=== PATIENT | male | born 1930 | race Caucasian/White ===

== ENCOUNTER 2017-03-19 06:30 | Inpatient (IN) | payer MEDICARE, MEDICAID ==
[2017-03-19] VITALS (16 sets, daily range): BP systolic 82–140; BP diastolic 41–75
[~2017-03-19] VITALS: Ht 182.9 cm; Wt 79.4 kg
--- NOTE | 2017-03-19 06:53 | Emergency Room Report ---
History of Present Illness General Chief Complaint: Altered Level of Consciousness Source: Medical Record, EMS Present Illness HPI Patient is an 86-year-old male brought in by EMS after increased altered mental status. Patient was noted to have slightly decreased responsiveness. He was noted to have elevated temperature. Patient had a report productive cough. Patient had the been sent from [facility]. The patient had been reportedly baseline confused. He is Welsh-speaking. Allergies: Coded Allergies: No Known Allergies (Unverified , 03/19/17) Patient History Past Medical History: see triage record, AFib, GI bleed Reviewed Nursing Documentation: PMH: Agreed, PSxH: Agreed Nursing Documentation-PMH Hx Cardiac Problems: Yes - CHRONIC A FIB Hx Hypertension: Yes Hx Gastrointestinal Problems: Yes - DYSPHAGIA,BPH History Of Psychiatric Problem: Yes - ANXIETY,MAJOR DEPRESSIVE DISORDER, DEMENTIA Review of Systems All Other Systems: limited - by mental status Physical Exam Vital Signs Date Time Temp Pulse Resp B/P (MAP) Pulse Ox O2 Delivery O2 Flow Rate FiO2 03/19/17 06:34 100.2 115 18 112/65 95 Room Air Sp02 EP Interpretation: reviewed, normal General Appearance: normal inspection, alert, Chronically Ill Head: atraumatic ENT: normal ENT inspection, hearing grossly normal, normal voice Neck: normal inspection, supple, no bony tend, limited range of motion Respiratory: normal inspection, no respiratory distress, no retraction, rhonchi Cardiovascular #1: regular rate, rhythm, no edema Gastrointestinal: normal inspection, normal bowel sounds, non tender, soft, no guarding, no hernia Genitourinary: no CVA tenderness Musculoskeletal: normal inspection, back normal, normal range of motion Neurologic: normal inspection, alert, responsive, electronic field service engineer III-XII nml as tested, speech normal Psychiatric: normal inspection Skin: normal inspection, normal color, no rash Medical Decision Making Diagnostic Impression: Primary Impression: Altered level of consciousness Additional Impressions: Pneumonia Sepsis Chronic a-fib ER Course The patient presented for altered mental status. Differential diagnosis included but was not limited to ischemic stroke, subarachnoid hemorrhage, hypoglycemia, spinal cord injury, neurodegenerative disorder, urinary tract infection, hypoxemia.Because of complexity of patient's case laboratory testing and imaging studies were ordered. Patient was given IV fluids and patient was given Tylenol. He was noted to have immediate improvement in his mental status after IV hydration. Patient started on IV antibiotics. EKG interpreted by me showed atrial fibrillation with normal heart rate. Rhythm strip showed atrial fibrillation with a rate of 96 without PVCs or ectopy. The patient was noted to have fever and rhonchi consistent with pneumonia. The patient admitted for further IV antibiotics and management of acute febrile illness. A chest x-ray one view interpreted by me showed normal cardiac size with no effusions there is slight right lower lobe infiltrate. Dr. Flores was contacted for inpatient management. Laboratory Tests Test 03/19/17 06:40 03/19/17 07:02 03/19/17 14:05 03/19/17 21:20 White Blood Count 12.1 K/UL (4.8-10.8) H Red Blood Count 4.42 M/UL (4.70-6.10) L Hemoglobin 14.7 G/DL (14.2-18.0) Hematocrit 43.0 % (42.0-52.0) Mean Corpuscular Volume 97 FL (80-99) Mean Corpuscular Hemoglobin 33.3 PG (27.0-31.0) H Mean Corpuscular Hemoglobin Concent 34.2 G/DL (32.0-36.0) Red Cell Distribution Width 12.7 % (11.6-14.8) Platelet Count 251 K/UL (150-450) Mean Platelet Volume 7.8 FL (6.5-10.1) Neutrophils (%) (Auto) % (45.0-75.0) Lymphocytes (%) (Auto) % (20.0-45.0) Monocytes (%) (Auto) % (1.0-10.0) Eosinophils (%) (Auto) % (0.0-3.0) Basophils (%) (Auto) % (0.0-2.0) Differential Total Cells Counted 100 Neutrophils % (Manual) 82 % (45-75) H Lymphocytes % (Manual) 12 % (20-45) L Monocytes % (Manual) 5 % (1-10) Eosinophils % (Manual) 0 % (0-3) Basophils % (Manual) 1 % (0-2) Band Neutrophils 0 % (0-8) Platelet Estimate Adequate Platelet Morphology Normal Urine Color Yellow Urine Appearance Clear Urine pH 6 (4.5-8.0) Urine Specific [place] 1.015 (1.005-1.035) Urine Protein 2+ (NEGATIVE) H Urine Glucose (UA) Negative (NEGATIVE) Urine Ketones Negative (NEGATIVE) Urine Occult Blood Negative (NEGATIVE) Urine Nitrite Negative (NEGATIVE) Urine Bilirubin Negative (NEGATIVE) Urine Urobilinogen 1 MG/DL (0.0-1.0) H Urine Leukocyte Esterase Negative (NEGATIVE) Urine RBC 0-2 /HPF (0 - 0) H Urine WBC 0 /HPF (0 - 0) Urine Squamous Epithelial Cells Occasional /LPF Urine Bacteria None /HPF (NONE) Urine Mucus Few /LPF (NONE/OCC) H Sodium Level 139 MMOL/L (136-145) Potassium Level 4.0 MMOL/L (3.5-5.1) Chloride Level 104 MMOL/L (98-107) Carbon Dioxide Level 26 MMOL/L (21-32) Anion Gap 9 mmol/L (5-15) Blood Urea Nitrogen 26 mg/dL (7-18) H Creatinine 1.4 MG/DL (0.55-1.30) H Estimate Glomerular Filtration Rate mL/min (>60) Glucose Level 131 MG/DL (74-106) H Lactic Acid Level 1.60 mmol/L (0.66-2.22) Calcium Level 9.7 MG/DL (8.5-10.1) Total Bilirubin 0.8 MG/DL (0.2-1.0) Aspartate Amino Transferase (AST) 26 U/L (15-37) Alanine Aminotransferase (ALT) 29 U/L (12-78) Alkaline Phosphatase 87 U/L (46-116) Total Creatine Kinase 43 U/L (26-308) Creatine Kinase MB < 0.5 NG/ML (0.0-3.6) Creatine Kinase MB Relative Index 1.1 Troponin I 0.073 ng/mL (0.000-0.056) 0.049 ng/mL (0.000-0.056) 0.037 ng/mL (0.000-0.056) Pro-B-Type Natriuretic Peptide 4958 pg/mL (0-125) H Total Protein 8.3 G/DL (6.4-8.2) H Albumin 3.2 G/DL (3.4-5.0) L Globulin 5.1 g/dL Albumin/Globulin Ratio 0.6 (1.0-2.7) L Arterial Blood pH 7.446 (7.350-7.450) Arterial Blood Partial Pressure CO2 33.9 mmHg (35.0-45.0) L Arterial Blood Partial Pressure O2 76.7 mmHg (75.0-100.0) Arterial Blood HCO3 22.5 mmol/L (22.0-26.0) Arterial Blood Oxygen Saturation 95.3 % (92.0-98.0) Arterial Blood Base Excess -0.5 Tomy Test Positive Test 03/20/17 03:20 White Blood Count 9.0 K/UL (4.8-10.8) Red Blood Count 3.54 M/UL (4.70-6.10) L Hemoglobin 12.2 G/DL (14.2-18.0) L Hematocrit 35.1 % (42.0-52.0) L Mean Corpuscular Volume 99 FL (80-99) Mean Corpuscular Hemoglobin 34.4 PG (27.0-31.0) H Mean Corpuscular Hemoglobin Concent 34.8 G/DL (32.0-36.0) Red Cell Distribution Width 13.0 % (11.6-14.8) Platelet Count 250 K/UL (150-450) Mean Platelet Volume 8.3 FL (6.5-10.1) Neutrophils (%) (Auto) % (45.0-75.0) Lymphocytes (%) (Auto) % (20.0-45.0) Monocytes (%) (Auto) % (1.0-10.0) Eosinophils (%) (Auto) % (0.0-3.0) Basophils (%) (Auto) % (0.0-2.0) Differential Total Cells Counted 100 Neutrophils % (Manual) 84 % (45-75) H Lymphocytes % (Manual) 10 % (20-45) L Monocytes % (Manual) 6 % (1-10) Eosinophils % (Manual) 0 % (0-3) Basophils % (Manual) 0 % (0-2) Band Neutrophils 0 % (0-8) Platelet Estimate Adequate Platelet Morphology Normal Red Blood Cell Morphology Normal Sodium Level 144 MMOL/L (136-145) Potassium Level 4.6 MMOL/L (3.5-5.1) Chloride Level 109 MMOL/L (98-107) H Carbon Dioxide Level 18 MMOL/L (21-32) L Anion Gap 18 mmol/L (5-15) H Blood Urea Nitrogen 29 mg/dL (7-18) H Creatinine 1.3 MG/DL (0.55-1.30) Estimate Glomerular Filtration Rate mL/min (>60) Glucose Level 106 MG/DL (74-106) Calcium Level 8.8 MG/DL (8.5-10.1) Magnesium Level 1.6 MG/DL (1.8-2.4) L Troponin I 0.034 ng/mL (0.000-0.056) Triglycerides Level 34 MG/DL (30-150) Cholesterol Level 92 MG/DL (< 200) LDL Cholesterol 41 mg/dL (<100) HDL Cholesterol 48 MG/DL (40-60) Cholesterol/HDL Ratio 1.9 (3.3-4.4) L Microbiology Date/Time Source Procedure Growth Status 03/19/17 06:55 Nasal Nares Influenza Types A,B Antigen ([facility]) - Final Complete Labs Test 03/19/17 06:40 03/19/17 07:02 White Blood Count 12.1 K/UL (4.8-10.8) Red Blood Count 4.42 M/UL (4.70-6.10) Hemoglobin 14.7 G/DL (14.2-18.0) Hematocrit 43.0 % (42.0-52.0) Mean Corpuscular Volume 97 FL (80-99) Mean Corpuscular Hemoglobin 33.3 PG (27.0-31.0) Mean Corpuscular Hemoglobin Concent 34.2 G/DL (32.0-36.0) Red Cell Distribution Width 12.7 % (11.6-14.8) Platelet Count 251 K/UL (150-450) Mean Platelet Volume 7.8 FL (6.5-10.1) Neutrophils (%) (Auto) % (45.0-75.0) Lymphocytes (%) (Auto) % (20.0-45.0) Monocytes (%) (Auto) % (1.0-10.0) Eosinophils (%) (Auto) % (0.0-3.0) Basophils (%) (Auto) % (0.0-2.0) Urine Color Yellow Urine Appearance Clear Urine pH 6 (4.5-8.0) Urine Specific [place] 1.015 (1.005-1.035) Urine Protein 2+ (NEGATIVE) Urine Glucose (UA) Negative (NEGATIVE) Urine Ketones Negative (NEGATIVE) Urine Occult Blood Negative (NEGATIVE) Urine Nitrite Negative (NEGATIVE) Urine Bilirubin Negative (NEGATIVE) Urine Urobilinogen 1 MG/DL (0.0-1.0) Urine Leukocyte Esterase Negative (NEGATIVE) Urine RBC 0-2 /HPF (0 - 0) Urine WBC 0 /HPF (0 - 0) Urine Squamous Epithelial Cells Occasional /LPF Urine Bacteria None /HPF (NONE) Urine Mucus Few /LPF (NONE/OCC) Arterial Blood pH 7.446 (7.350-7.450) Arterial Blood Partial Pressure CO2 33.9 mmHg (35.0-45.0) Arterial Blood Partial Pressure O2 76.7 mmHg (75.0-100.0) Arterial Blood HCO3 22.5 mmol/L (22.0-26.0) Arterial Blood Oxygen Saturation 95.3 % (92.0-98.0) Arterial Blood Base Excess -0.5 Tomy Test Positive Last Vital Signs Date Time Temp Pulse Resp B/P (MAP) Pulse Ox O2 Delivery O2 Flow Rate FiO2 03/19/17 06:34 100.2 115 18 112/65 95 Room Air Status: improved Disposition: ADMITTED INPATIENT Condition: Serious Law Carr Mar 19, 2017 06:53
[2017-03-19] MEDS ORDERED: TAMSULOSIN HCL0.4 MG ORAL (06:57)
[2017-03-19] MEDS ORDERED: DOCUSATE SODIU250 MG ORAL (06:57)
[2017-03-19] MEDS ORDERED: PAXIL10 MG ORAL (06:57)
[2017-03-19] MEDS ORDERED: BISACODYL10 M1 RC (06:57)
[2017-03-19] MEDS ORDERED: DEXILANT60 MG ORAL (06:57)
[2017-03-19] MEDS ORDERED: NORVASC5 MG ORAL (06:57)
[2017-03-19] MEDS ORDERED: MULTIVITAMINS1 EAC8 ORAL (06:57)
[2017-03-19] MEDS ORDERED: XARELTO15 MG ORAL (06:57)
[2017-03-19] MEDS ORDERED: CAPTOPRIL50 MG PO (06:57)
[2017-03-19] MEDS ORDERED: VOLTAREN100 G1 TP (06:57)
[2017-03-19] MEDS ORDERED: PATADAY2.5 ML BOTH EYES (06:57)
[2017-03-19] MEDS ORDERED: HPN PO (06:57)
[2017-03-19] MEDS ORDERED: KLONOPIN0.5 MG ORAL (06:57)
[2017-03-19] MEDS ORDERED: DIOVAN160 MG ORAL (06:57)
[2017-03-19] MEDS ORDERED: Acetaminophen 650 MG SUPP RECTAL ONE (07:00)
[2017-03-19] MEDS ORDERED: Vancomycin 1.5gm/D5W 250ml 250 ML IVPB ONE (07:00)
[2017-03-19] MEDS ORDERED: Ampicillin/Sulbactam Sod 3 GM in NS 110 ML IV SCH (07:00)
[2017-03-19] MEDS ORDERED: Unasyn 3gm Inj ONE (07:03)
[2017-03-19 07:15] LABS: APPEARANCE,URINE CLEAR; BILIRUBIN, URINE NEGATIVE (NEGATIVE); GLUCOSE, URINE (UA) NEGATIVE (NEGATIVE); KETONES,URINE NEGATIVE (NEGATIVE); LEUKOCYTE ESTERASE ,URINE NEGATIVE (NEGATIVE); NITRITE,URINE NEGATIVE (NEGATIVE); PH,URINE 6 (4.5-8.0); PROTEIN,URINE 2+ (NEGATIVE); UROBILINOGEN,URINE 1 MG/DL (0.0-1.0)
[2017-03-19 07:19] LABS: ANION GAP 9 mmol/L (5-15); BLOOD UREA NITROGEN 26 mg/dL (7-18); CALCIUM 9.7 MG/DL (8.5-10.1); CARBON DIOXIDE 26 MMOL/L (21-32); CHLORIDE 104 MMOL/L (98-107); CREATININE 1.4 MG/DL (0.55-1.30); SODIUM 139 MMOL/L (136-145)
[2017-03-19 07:22] LABS: HEMOGLOBIN 14.7 G/DL (14.2-18.0); MEAN CORPUSCULAR VOLUME 97 FL (80-99); PLATELET COUNT 251 K/UL (150-450); RED BLOOD COUNT 4.42 M/UL (4.70-6.10); RED CELL DISTRIBUTION WIDTH 12.7 % (11.6-14.8); WHITE BLOOD COUNT 12.1 K/UL (4.8-10.8)
[2017-03-19 07:26] LABS: COLOR,URINE YELLOW
[2017-03-19 07:34] LABS: ALANINE AMINOTRANSFERASE 29 U/L (12-78); ALBUMIN 3.2 G/DL (3.4-5.0); ALBUMIN/GLOBULIN RATIO 0.6 (1.0-2.7); ALKALINE PHOSPHATASE 87 U/L (46-116); ASPARTATE AMINO TRANSFERASE 26 U/L (15-37); BILIRUBIN,TOTAL 0.8 MG/DL (0.2-1.0); CKMB < 0.5 NG/ML (0.0-3.6); CREATINE KINASE 43 U/L (26-308)
--- NOTE | 2017-03-19 08:47 | History and Physical ---
History of Present Illness General Date patient seen: Mar 19, 2017 Time patient seen: 17:15 Reason for Hospitalization: Altered Level of Consciousness Present Illness HPI 86y/o male with pmh of Alzheimer's dementia, Afib (on AC), HTN, GERD, BPH who presents from SNF with cough, SOB, fevers and AMS. Pt noted to have slightly decreased responsiveness than usual per report. He also had fever at SNF. He has been having a productive cough. Also w/ SOB, congestion. Per daughter, pt w / Alzheimer's dementia and is only usually A&Ox1. No reports of chest pain, n/v/ d, abd pain. In ED, pt w/ low-grade fever, leukocytosis and CXR w/ concern for RLL infiltrate. Pt was given vanco and zosyn. Allergies: Coded Allergies: No Known Allergies (Unverified , 03/19/17) Medication History Scheduled Amlodipine Besylate (Norvasc), 5 MG ORAL DAILY, (Reported) Bisacodyl (Bisacodyl), 5 MG RC DAILY, (Reported) Captopril (Captopril), 50 MG PO DAILY, (Reported) Clonazepam* (Klonopin*), 0.5 MG ORAL BID, (Reported) Dexlansoprazole (Dexilant), 60 MG ORAL DAILY, (Reported) Diclofenac Sodium (Voltaren), 100 GM TP QID, (Reported) Docusate Sodium* (Docusate Sodium*), 250 MG ORAL TWICE A DAY, (Reported) Multivitamin With Minerals (Multivitamins With Minerals*), 1 TAB ORAL DAILY, ( Reported) Olopatadine Hcl (Pataday), 1 DROP BOTH EYES BID, (Reported) Paroxetine Hcl* (Paxil*), 5 MG ORAL DAILY, (Reported) Rivaroxaban (Xarelto), 15 MG ORAL DAILY, (Reported) Tamsulosin Hcl (Tamsulosin Hcl*), 0.4 MG ORAL BEDTIME, (Reported) Valsartan (Diovan), 160 MG ORAL DAILY, (Reported) [Hpn], 4 OZ PO THREE TIMES A DAY, (Reported) Patient History History Provided By: Patient, Family Member, Medical Record, EMS Healthcare decision maker Resuscitation status Advanced Directive on File Past Medical/Surgical History Past Medical/Surgical History: (1) HTN (hypertension) (2) Alzheimer's dementia (3) BPH (benign prostatic hyperplasia) (4) GERD (gastroesophageal reflux disease) (5) Chronic a-fib Family History Family History: Patient reports no known family medical history. Social History Social History: (1) lives at [facility] Review of Systems ROS Narrative Unable to obtain as pt w/ dementia Physical Exam Physical Exam Narrative General: alert, cooperative, no distress, appears stated age Head: normocephalic, without obvious abnormality, atraumatic Eyes: conjunctivae/corneas clear. PERRL, EOM's intact Throat: lips, mucosa, and tongue normal. MMM Neck: supple, symmetrical, trachea midline, and no JVD Lungs: +rhonchi b/l Heart: regular rate and rhythm, S1, S2 normal, no murmur, click, rub or gallop Abdomen: soft, non-tender, non-distended, bowel sounds normal Extremities: extremities normal, atraumatic, no cyanosis or edema Pulses: 2+ and symmetric Skin: skin color, texture, turgor normal; no rashes or lesions Neurologic: grossly normal, no focal deficits Last 24 Hour Vital Signs Date Time Temp Pulse Resp B/P (MAP) Pulse Ox O2 Delivery O2 Flow Rate FiO2 03/19/17 08:09 93 21 101/43 98 Nasal Cannula 2.0 03/19/17 08:08 98.8 03/19/17 06:57 100.2 97 25 92/69 98 Nasal Cannula 2.0 03/19/17 06:34 100.2 115 18 112/65 95 Room Air Intake and Output 03/18/17 03/19/17 19:00 07:00 Intake Total 0 ml Balance 0 ml Intake Oral 0 ml Laboratory Tests Test 03/19/17 06:40 03/19/17 07:02 White Blood Count 12.1 K/UL (4.8-10.8) H Red Blood Count 4.42 M/UL (4.70-6.10) L Hemoglobin 14.7 G/DL (14.2-18.0) Hematocrit 43.0 % (42.0-52.0) Mean Corpuscular Volume 97 FL (80-99) Mean Corpuscular Hemoglobin 33.3 PG (27.0-31.0) H Mean Corpuscular Hemoglobin Concent 34.2 G/DL (32.0-36.0) Red Cell Distribution Width 12.7 % (11.6-14.8) Platelet Count 251 K/UL (150-450) Mean Platelet Volume 7.8 FL (6.5-10.1) Neutrophils (%) (Auto) % (45.0-75.0) Lymphocytes (%) (Auto) % (20.0-45.0) Monocytes (%) (Auto) % (1.0-10.0) Eosinophils (%) (Auto) % (0.0-3.0) Basophils (%) (Auto) % (0.0-2.0) Neutrophils % (Manual) Pending Lymphocytes % (Manual) Pending Platelet Estimate Pending Platelet Morphology Pending Urine Color Yellow Urine Appearance Clear Urine pH 6 (4.5-8.0) Urine Specific [place] 1.015 (1.005-1.035) Urine Protein 2+ (NEGATIVE) H Urine Glucose (UA) Negative (NEGATIVE) Urine Ketones Negative (NEGATIVE) Urine Occult Blood Negative (NEGATIVE) Urine Nitrite Negative (NEGATIVE) Urine Bilirubin Negative (NEGATIVE) Urine Urobilinogen 1 MG/DL (0.0-1.0) H Urine Leukocyte Esterase Negative (NEGATIVE) Urine RBC 0-2 /HPF (0 - 0) H Urine WBC 0 /HPF (0 - 0) Urine Squamous Epithelial Cells Occasional /LPF Urine Bacteria None /HPF (NONE) Urine Mucus Few /LPF (NONE/OCC) H Sodium Level 139 MMOL/L (136-145) Potassium Level 4.0 MMOL/L (3.5-5.1) Chloride Level 104 MMOL/L (98-107) Carbon Dioxide Level 26 MMOL/L (21-32) Anion Gap 9 mmol/L (5-15) Blood Urea Nitrogen 26 mg/dL (7-18) H Creatinine 1.4 MG/DL (0.55-1.30) H Estimat Glomerular Filtration Rate mL/min (>60) Glucose Level 131 MG/DL (74-106) H Lactic Acid Level 1.60 mmol/L (0.66-2.22) Calcium Level 9.7 MG/DL (8.5-10.1) Total Bilirubin 0.8 MG/DL (0.2-1.0) Aspartate Amino Transf (AST/SGOT) 26 U/L (15-37) Alanine Aminotransferase (ALT/SGPT) 29 U/L (12-78) Alkaline Phosphatase 87 U/L (46-116) Total Creatine Kinase 43 U/L (26-308) Creatine Kinase MB < 0.5 NG/ML (0.0-3.6) Creatine Kinase MB Relative Index 1.1 Troponin I 0.073 ng/mL (0.000-0.056) Pro-B-Type Natriuretic Peptide 4958 pg/mL (0-125) H Total Protein 8.3 G/DL (6.4-8.2) H Albumin 3.2 G/DL (3.4-5.0) L Globulin 5.1 g/dL Albumin/Globulin Ratio 0.6 (1.0-2.7) L Arterial Blood pH 7.446 (7.350-7.450) Arterial Blood Partial Pressure CO2 33.9 mmHg (35.0-45.0) L Arterial Blood Partial Pressure O2 76.7 mmHg (75.0-100.0) Arterial Blood HCO3 22.5 mmol/L (22.0-26.0) Arterial Blood Oxygen Saturation 95.3 % (92.0-98.0) Arterial Blood Base Excess -0.5 Tomy Test Positive Microbiology Date/Time Source Procedure Growth Status 03/19/17 06:55 Nasal Nares Influenza Types A,B Antigen ([facility]) - Final Complete Height (Feet): 6 Weight (Pounds): 175 Medications Current Medications Medications (Trade) Dose Ordered Sig/Jeny Route PRN Reason Start Time Stop Time Status Last Admin Dose Admin Ampicillin Sodium/ Sulbactam Sodium 3 gm/Sodium Chloride 110 ml @ 220 mls/hr Q6H IV 03/19/17 07:00 03/20/17 06:59 03/19/17 07:14 Sodium Chloride 1,000 ml @ 999 mls/hr Q1H1M ONCE IV 03/19/17 08:30 03/19/17 09:30 03/19/17 08:25 Vancomycin HCl/ Dextrose 250 ml @ 125 mls/hr ONCE ONCE IVPB 03/19/17 07:00 03/19/17 08:59 03/19/17 07:54 Assessment/Plan Problem List: (1) Sepsis ICD Codes: A41.9 - Sepsis, unspecified organism SNOMED: 79274815 (2) HCAP (healthcare-associated pneumonia) ICD Codes: J18.9 - Pneumonia, unspecified organism SNOMED: 911504284 (3) RODOLFO (acute kidney injury) ICD Codes: N17.9 - Acute kidney failure, unspecified SNOMED: 55776666 (4) Acute toxic metabolic encephalopathy (5) Elevated troponin Assessment & Plan: likely NSTEMI type 2 in setting of sepsis ICD Codes: R74.8 - Abnormal levels of other serum enzymes SNOMED: 562950768, 178374782, 706868160 (6) Chronic a-fib ICD Codes: I48.2 - Chronic atrial fibrillation SNOMED: 103452470 (7) GERD (gastroesophageal reflux disease) ICD Codes: K21.9 - Gastro-esophageal reflux disease without esophagitis SNOMED: 275510807 (8) HTN (hypertension) ICD Codes: I10 - Essential (primary) hypertension SNOMED: 65835544 (9) BPH (benign prostatic hyperplasia) ICD Codes: N40.0 - Benign prostatic hyperplasia without lower urinary tract symptoms SNOMED: 384012348 (10) Alzheimer's dementia ICD Codes: G30.9 - Alzheimer's disease, unspecified; F02.80 - Dementia in other diseases classified elsewhere without behavioral disturbance SNOMED: 57265341 Status: stable Assessment/Plan Admit tele Pulm consulted ID consulted Empiric vanco and zosyn (03/19-) F/u cultures Duonebs ATC and PRN Guaifenesin NPO pending swallow eval IVFs given RODOLFO Hold ARB given RODOLFO Trend BMP Cardiology consult given elevated trop Trend trop/EKG Check TTE ASA 81mg daily Cont SNF meds Pain control, bowel regimen Supportive care DVT Prophylaxis: SCD, xarelto Code Status: Full Hospital Classification Declaration: Based on this initial evaluation, and depending on the patient's clinical course, I anticipate that this patient will require hospitalization for 2-3 days for sepsis, PNA, and close respiratory/ hemodynamic monitoring. Disposition: Once the patient is stable to leave the hospital, I anticipate the patient will likely be discharged to the following environment: back to SNF I spent 72 minutes on this patient's case, and 40 minutes were dedicated to counseling and/or care coordination. Discussed with patient/family, nursing staff, SW/LILLIE, pulmonology, ID, cardiology regarding clinical status, treatment course, and disposition planning. Time of note may not reflect time of encounter. Gogo Hubbard M.D. Mar 19, 2017 08:47
[2017-03-19] MEDS ORDERED: Acetaminophen 650 MG SUPP RECTAL PRN (09:00)
[2017-03-19] MEDS ORDERED: Albuterol/Ipratropium 3ml neb HHN PRN ×2 (10:00→14:00)
[2017-03-19] MEDS ORDERED: Miralax 17gm pkt ORAL PRN (10:00)
--- NOTE | 2017-03-19 10:27 | Consultation ---
History of Present Illness General Date patient seen: Mar 19, 2017 Chief Complaint: Fever and upper respiratory symptoms Altered mental status Referring physician: Dr. Thompson Reason for Consultation: Dyspnea Present Illness HPI 86y/o male with pmh of Alzheimer's dementia, Afib, HTN, GERD, BPH who presents from SNF with c/o cough and shortness of breath with fevers and AMS. I was asked to consult on the case and evaluate the patients respiratory status. Patient's CXR at this time is remarkable for possibel right lower lobe infiltrates though the patients dehydration may hinder infiltrate formations, therefore a repeat CXR scheduled to evaluate the patients airfields. The patient has been given empiric IV antibiotics for suspected mcfp aquired pnuemonia and supplmental oxygen will be provided to maintain the patients perfusion. Allergies: Coded Allergies: No Known Allergies (Unverified , 03/19/17) Medication History Scheduled Amlodipine Besylate (Norvasc), 5 MG ORAL DAILY, (Reported) Amoxicillin/Potassium Clav 875-125* (Augmentin 875-125 Tablet*), 1 TAB ORAL TWICE A DAY Bisacodyl (Bisacodyl), 5 MG RC DAILY, (Reported) Captopril (Captopril), 50 MG PO DAILY, (Reported) Clonazepam* (Klonopin*), 0.5 MG ORAL BID, (Reported) Dexlansoprazole (Dexilant), 60 MG ORAL DAILY, (Reported) Diclofenac Sodium (Voltaren), 100 GM TP QID, (Reported) Docusate Sodium* (Docusate Sodium*), 250 MG ORAL TWICE A DAY, (Reported) Doxycycline Monohydrate (Doxycycline Monohydrate), 100 MG PO BID Finasteride (Finasteride), 5 MG ORAL DAILY Multivitamin With Minerals (Multivitamins With Minerals*), 1 TAB ORAL DAILY, ( Reported) Olopatadine Hcl (Pataday), 1 DROP BOTH EYES BID, (Reported) Paroxetine Hcl* (Paxil*), 5 MG ORAL DAILY, (Reported) Tamsulosin Hcl (Tamsulosin Hcl*), 0.4 MG ORAL BEDTIME, (Reported) Valsartan (Diovan), 160 MG ORAL DAILY, (Reported) [Hpn], 4 OZ PO THREE TIMES A DAY, (Reported) Patient History Healthcare decision maker Resuscitation status Advanced Directive on File Past Medical/Surgical History Past Medical/Surgical History: (1) lives at snf (2) GERD (gastroesophageal reflux disease) (3) HTN (hypertension) (4) Alzheimer's dementia (5) BPH (benign prostatic hyperplasia) (6) HCAP (healthcare-associated pneumonia) (7) Acute toxic metabolic encephalopathy (8) Elevated troponin (9) Acute blood loss anemia (10) RODOLFO (acute kidney injury) (11) Gross hematuria Review of Systems Constitutional: Reports: fever, malaise, weakness Respiratory: Reports: cough, shortness of breath, wheezing, sputum Physical Exam General Appearance: confused, mild distress Lines, tubes and drains: peripheral HEENT: normocephalic, atraumatic, anicteric, PERRL Neck: non-tender, normal alignment, supple, normal inspection Respiratory/Chest: chest wall non-tender, decreased breath sounds, crackles/ rales Breasts: no masses Cardiovascular/Chest: normal peripheral pulses, normal rate, regular rhythm, no JVD Abdomen: normal bowel sounds, non tender, soft, no organomegaly, no mass Genitourinary/Rectal: normal genital exam, normal rectal exam Extremities: normal range of motion, non-tender, normal inspection, no calf tenderness Skin Exam: normal pigmentation, warm/dry Neurologic: manager engine II-XII grossly normal, responsive, disoriented Musculoskeletal: atrophy Last 24 Hour Vital Signs Date Time Temp Pulse Resp B/P (MAP) Pulse Ox O2 Delivery O2 Flow Rate FiO2 03/19/17 10:05 88 21 93/63 100 Nasal Cannula 4.0 03/19/17 09:40 77 18 111/64 93 Nasal Cannula 2.0 03/19/17 09:30 79 19 85/42 98 Nasal Cannula 2.0 03/19/17 09:15 79 20 88/59 97 Nasal Cannula 2.0 03/19/17 08:45 85 19 104/57 100 Nasal Cannula 2.0 03/19/17 08:30 79 21 92/41 96 Nasal Cannula 2.0 03/19/17 08:15 85 21 82/41 94 Nasal Cannula 2.0 03/19/17 08:09 93 21 101/43 98 Nasal Cannula 2.0 03/19/17 08:08 98.8 03/19/17 08:00 98.8 85 20 90/59 92 Nasal Cannula 2.0 03/19/17 06:57 100.2 97 25 92/69 98 Nasal Cannula 2.0 03/19/17 06:34 100.2 115 18 112/65 95 Room Air Intake and Output 03/18/17 03/19/17 19:00 07:00 Intake Total 0 ml Balance 0 ml Intake Oral 0 ml Laboratory Tests Test 03/19/17 06:40 03/19/17 07:02 White Blood Count 12.1 K/UL (4.8-10.8) H Red Blood Count 4.42 M/UL (4.70-6.10) L Hemoglobin 14.7 G/DL (14.2-18.0) Hematocrit 43.0 % (42.0-52.0) Mean Corpuscular Volume 97 FL (80-99) Mean Corpuscular Hemoglobin 33.3 PG (27.0-31.0) H Mean Corpuscular Hemoglobin Concent 34.2 G/DL (32.0-36.0) Red Cell Distribution Width 12.7 % (11.6-14.8) Platelet Count 251 K/UL (150-450) Mean Platelet Volume 7.8 FL (6.5-10.1) Neutrophils (%) (Auto) % (45.0-75.0) Lymphocytes (%) (Auto) % (20.0-45.0) Monocytes (%) (Auto) % (1.0-10.0) Eosinophils (%) (Auto) % (0.0-3.0) Basophils (%) (Auto) % (0.0-2.0) Differential Total Cells Counted 100 Neutrophils % (Manual) 82 % (45-75) H Lymphocytes % (Manual) 12 % (20-45) L Monocytes % (Manual) 5 % (1-10) Eosinophils % (Manual) 0 % (0-3) Basophils % (Manual) 1 % (0-2) Band Neutrophils 0 % (0-8) Platelet Estimate Adequate Platelet Morphology Normal Urine Color Yellow Urine Appearance Clear Urine pH 6 (4.5-8.0) Urine Specific [place] 1.015 (1.005-1.035) Urine Protein 2+ (NEGATIVE) H Urine Glucose (UA) Negative (NEGATIVE) Urine Ketones Negative (NEGATIVE) Urine Occult Blood Negative (NEGATIVE) Urine Nitrite Negative (NEGATIVE) Urine Bilirubin Negative (NEGATIVE) Urine Urobilinogen 1 MG/DL (0.0-1.0) H Urine Leukocyte Esterase Negative (NEGATIVE) Urine RBC 0-2 /HPF (0 - 0) H Urine WBC 0 /HPF (0 - 0) Urine Squamous Epithelial Cells Occasional /LPF Urine Bacteria None /HPF (NONE) Urine Mucus Few /LPF (NONE/OCC) H Sodium Level 139 MMOL/L (136-145) Potassium Level 4.0 MMOL/L (3.5-5.1) Chloride Level 104 MMOL/L (98-107) Carbon Dioxide Level 26 MMOL/L (21-32) Anion Gap 9 mmol/L (5-15) Blood Urea Nitrogen 26 mg/dL (7-18) H Creatinine 1.4 MG/DL (0.55-1.30) H Estimat Glomerular Filtration Rate mL/min (>60) Glucose Level 131 MG/DL (74-106) H Lactic Acid Level 1.60 mmol/L (0.66-2.22) Calcium Level 9.7 MG/DL (8.5-10.1) Total Bilirubin 0.8 MG/DL (0.2-1.0) Aspartate Amino Transf (AST/SGOT) 26 U/L (15-37) Alanine Aminotransferase (ALT/SGPT) 29 U/L (12-78) Alkaline Phosphatase 87 U/L (46-116) Total Creatine Kinase 43 U/L (26-308) Creatine Kinase MB < 0.5 NG/ML (0.0-3.6) Creatine Kinase MB Relative Index 1.1 Troponin I 0.073 ng/mL (0.000-0.056) Pro-B-Type Natriuretic Peptide 4958 pg/mL (0-125) H Total Protein 8.3 G/DL (6.4-8.2) H Albumin 3.2 G/DL (3.4-5.0) L Globulin 5.1 g/dL Albumin/Globulin Ratio 0.6 (1.0-2.7) L Arterial Blood pH 7.446 (7.350-7.450) Arterial Blood Partial Pressure CO2 33.9 mmHg (35.0-45.0) L Arterial Blood Partial Pressure O2 76.7 mmHg (75.0-100.0) Arterial Blood HCO3 22.5 mmol/L (22.0-26.0) Arterial Blood Oxygen Saturation 95.3 % (92.0-98.0) Arterial Blood Base Excess -0.5 Tomy Test Positive Microbiology Date/Time Source Procedure Growth Status 03/19/17 06:55 Nasal Nares Influenza Types A,B Antigen ([facility]) - Final Complete Height (Feet): 6 Weight (Pounds): 175 Medications Current Medications Medications (Trade) Dose Ordered Sig/Jeny Route PRN Reason Start Time Stop Time Status Last Admin Dose Admin Acetaminophen (Tylenol) 650 mg Q4H PRN ORAL Mild Pain (Pain Scale 1-3) 03/19/17 10:00 04/18/17 09:59 Acetaminophen (Tylenol) 650 mg Q4H PRN ORAL fever 03/19/17 10:00 04/18/17 09:59 Acetaminophen (Tylenol) 650 mg Q4H PRN RECTAL Mild Pain (Pain Scale 1-3) 03/19/17 09:00 04/18/17 08:59 Albuterol/ Ipratropium (Albuterol/ Ipratropium) 3 ml Q4H PRN HHN Shortness of Breath 03/19/17 10:00 03/24/17 09:59 Amlodipine Besylate (Norvasc) 5 mg DAILY ORAL 03/19/17 09:00 04/18/17 08:59 UNV Ampicillin Sodium/ Sulbactam Sodium 3 gm/Sodium Chloride 110 ml @ 220 mls/hr Q6H IV 03/19/17 07:00 03/20/17 06:59 03/19/17 07:14 Bisacodyl (Dulcolax) 10 mg HSPRN PRN RECTAL Constipation 1st Line Agent 03/19/17 09:00 04/18/17 08:59 Dextrose (Dextrose 50%) STAT PRN IV Hypoglycemia 03/19/17 10:00 04/18/17 09:59 Docusate Sodium (Colace) 100 mg EVERY 12 HOURS ORAL 03/19/17 21:00 04/18/17 20:59 Heparin Sodium (Porcine) (Heparin 5000 units/ml) 5,000 units EVERY 12 HOURS SUBQ 03/19/17 21:00 04/18/17 20:59 UNV Multivitamins Therapeutic (Therapeutic Multivitamin) 1 ea DAILY ORAL 03/19/17 09:00 04/18/17 08:59 UNV Ondansetron HCl (Zofran) 4 mg Q6H PRN IVP Nausea & Vomiting 03/19/17 10:00 04/18/17 09:59 Paroxetine HCl (Paxil) 5 mg DAILY ORAL 03/19/17 09:00 04/18/17 08:59 UNV Piperacillin Sod/ Tazobactam Sod 3.375 gm/Sodium Chloride 110 ml @ 220 mls/hr Q8H IVPB 03/19/17 09:00 03/26/17 08:59 UNV Polyethylene Glycol (Miralax) 17 gm HSPRN PRN ORAL Constipation 2nd Line Agent 03/19/17 10:00 04/18/17 09:59 Rivaroxaban (Xarelto) 15 mg DAILY ORAL 03/19/17 09:00 04/18/17 08:59 UNV Tamsulosin HCl (Flomax) 0.4 mg BEDTIME ORAL 03/19/17 21:00 04/18/17 20:59 Vancomycin HCl (Vanco rx to dose) 1 ea DAILY PRN MISC Per rx protocol 03/19/17 09:00 04/18/17 08:59 UNV Assessment/Plan Status: stable, progressing Assessment/Plan (1) Sepsis (2) Nosocomial pnuemonia HCAP (healthcare-associated pneumonia) (3) RODOLFO (acute kidney injury) (4) Acute toxic metabolic encephalopathy (5) Elevated troponin (6) Chronic a-fib (7) GERD (gastroesophageal reflux disease) (8) HTN (hypertension) (9) BPH (benign prostatic hyperplasia) (10) Alzheimer's dementia PLAN Aspiration precautions Titrate FiO2 up maintain O2 saturation above 92 % Breathing Tx as needed for SOB CXR examined RLL infiltrate possible will re-examine Gentle IV fluids Empiric ANTBX for probable nosocomially aquired pneumonia TUAN FARRELL Mar 19, 2017 10:27
--- NOTE | 2017-03-19 11:43 | Diagnostic Imaging Report ---
Indication: Dyspnea Technique: XRAY Chest 1v Comparison: None Findings: Limited exam as the patient's chin obscures portions of the lung apices. Heart is borderline enlarged. Atherosclerotic calcification is noted in the aortic arch. There is no focal airspace consolidation, pleural effusion or pneumothorax. There is apparent biapical scarring. There is a questionable the and 4 mm nodular entities in the right left apex, respectively.. Impression: Limited exam. Borderline cardiomegaly. No radiographic evidence of acute cardiopulmonary disease. Apparent nodular densities in the apices. Pulmonary nodules not excluded. Further evaluation with CT of the chest recommended. This may be obtained on a nonemergent basis.
[2017-03-19] MEDS: PARoxetine 10mg tab ORAL SCH (14:48)
[2017-03-19] MEDS: Multivitamin w/Minerals tab ORAL SCH (14:48)
--- NOTE | 2017-03-19 14:53 | Cardiac Electrophysiology PN ---
Subjective Subjective Cardiology consult dictated [id number] Objective Last 24 Hour Vital Signs Date Time Temp Pulse Resp B/P (MAP) Pulse Ox O2 Delivery O2 Flow Rate FiO2 03/19/17 12:40 98.9 79 18 114/65 100 Nasal Cannula 4.0 03/19/17 12:00 79 18 114/65 100 Nasal Cannula 4.0 03/19/17 11:00 98.9 87 21 128/56 98 Nasal Cannula 4.0 03/19/17 10:30 80 20 139/60 100 Nasal Cannula 4.0 03/19/17 10:15 80 20 106/73 99 Nasal Cannula 4.0 03/19/17 10:05 88 21 93/63 100 Nasal Cannula 4.0 03/19/17 09:40 77 18 111/64 93 Nasal Cannula 2.0 03/19/17 09:30 79 19 85/42 98 Nasal Cannula 2.0 03/19/17 09:15 79 20 88/59 97 Nasal Cannula 2.0 03/19/17 08:45 85 19 104/57 100 Nasal Cannula 2.0 03/19/17 08:30 79 21 92/41 96 Nasal Cannula 2.0 03/19/17 08:15 85 21 82/41 94 Nasal Cannula 2.0 03/19/17 08:09 93 21 101/43 98 Nasal Cannula 2.0 03/19/17 08:08 98.8 03/19/17 08:00 98.8 85 20 90/59 92 Nasal Cannula 2.0 03/19/17 06:57 100.2 97 25 92/69 98 Nasal Cannula 2.0 03/19/17 06:34 100.2 115 18 112/65 95 Room Air Intake and Output 03/18/17 03/19/17 19:00 07:00 Intake Total 0 ml Balance 0 ml Intake Oral 0 ml Laboratory Tests Test 03/19/17 06:40 03/19/17 07:02 03/19/17 14:05 White Blood Count 12.1 K/UL (4.8-10.8) H Red Blood Count 4.42 M/UL (4.70-6.10) L Hemoglobin 14.7 G/DL (14.2-18.0) Hematocrit 43.0 % (42.0-52.0) Mean Corpuscular Volume 97 FL (80-99) Mean Corpuscular Hemoglobin 33.3 PG (27.0-31.0) H Mean Corpuscular Hemoglobin Concent 34.2 G/DL (32.0-36.0) Red Cell Distribution Width 12.7 % (11.6-14.8) Platelet Count 251 K/UL (150-450) Mean Platelet Volume 7.8 FL (6.5-10.1) Neutrophils (%) (Auto) % (45.0-75.0) Lymphocytes (%) (Auto) % (20.0-45.0) Monocytes (%) (Auto) % (1.0-10.0) Eosinophils (%) (Auto) % (0.0-3.0) Basophils (%) (Auto) % (0.0-2.0) Differential Total Cells Counted 100 Neutrophils % (Manual) 82 % (45-75) H Lymphocytes % (Manual) 12 % (20-45) L Monocytes % (Manual) 5 % (1-10) Eosinophils % (Manual) 0 % (0-3) Basophils % (Manual) 1 % (0-2) Band Neutrophils 0 % (0-8) Platelet Estimate Adequate Platelet Morphology Normal Urine Color Yellow Urine Appearance Clear Urine pH 6 (4.5-8.0) Urine Specific [place] 1.015 (1.005-1.035) Urine Protein 2+ (NEGATIVE) H Urine Glucose (UA) Negative (NEGATIVE) Urine Ketones Negative (NEGATIVE) Urine Occult Blood Negative (NEGATIVE) Urine Nitrite Negative (NEGATIVE) Urine Bilirubin Negative (NEGATIVE) Urine Urobilinogen 1 MG/DL (0.0-1.0) H Urine Leukocyte Esterase Negative (NEGATIVE) Urine RBC 0-2 /HPF (0 - 0) H Urine WBC 0 /HPF (0 - 0) Urine Squamous Epithelial Cells Occasional /LPF Urine Bacteria None /HPF (NONE) Urine Mucus Few /LPF (NONE/OCC) H Sodium Level 139 MMOL/L (136-145) Potassium Level 4.0 MMOL/L (3.5-5.1) Chloride Level 104 MMOL/L (98-107) Carbon Dioxide Level 26 MMOL/L (21-32) Anion Gap 9 mmol/L (5-15) Blood Urea Nitrogen 26 mg/dL (7-18) H Creatinine 1.4 MG/DL (0.55-1.30) H Estimat Glomerular Filtration Rate mL/min (>60) Glucose Level 131 MG/DL (74-106) H Lactic Acid Level 1.60 mmol/L (0.66-2.22) Calcium Level 9.7 MG/DL (8.5-10.1) Total Bilirubin 0.8 MG/DL (0.2-1.0) Aspartate Amino Transf (AST/SGOT) 26 U/L (15-37) Alanine Aminotransferase (ALT/SGPT) 29 U/L (12-78) Alkaline Phosphatase 87 U/L (46-116) Total Creatine Kinase 43 U/L (26-308) Creatine Kinase MB < 0.5 NG/ML (0.0-3.6) Creatine Kinase MB Relative Index 1.1 Troponin I 0.073 ng/mL (0.000-0.056) 0.049 ng/mL (0.000-0.056) Pro-B-Type Natriuretic Peptide 4958 pg/mL (0-125) H Total Protein 8.3 G/DL (6.4-8.2) H Albumin 3.2 G/DL (3.4-5.0) L Globulin 5.1 g/dL Albumin/Globulin Ratio 0.6 (1.0-2.7) L Arterial Blood pH 7.446 (7.350-7.450) Arterial Blood Partial Pressure CO2 33.9 mmHg (35.0-45.0) L Arterial Blood Partial Pressure O2 76.7 mmHg (75.0-100.0) Arterial Blood HCO3 22.5 mmol/L (22.0-26.0) Arterial Blood Oxygen Saturation 95.3 % (92.0-98.0) Arterial Blood Base Excess -0.5 Tomy Test Positive Microbiology Date/Time Source Procedure Growth Status 03/19/17 06:55 Nasal Nares Influenza Types A,B Antigen ([facility]) - Final Complete DOROTHY ARMSTRONG Mar 19, 2017 14:53
--- NOTE | 2017-03-19 15:07 | Cardiology Report ---
APPROVED REPORT EXAM: Two-dimensional and M-mode echocardiogram with Doppler and color Doppler. INDICATION SOB M-Mode DIMENSIONS IVSd0.8 (0.7-1.1cm)Left Atrium (MM)4.7 (1.6-4.0cm) LVDd4.6 (3.5-5.6cm)Aortic Root3.2 (2.0-3.7cm) PWd1.0 (0.7-1.1cm)Aortic Cusp Exc.1.8 (1.5-2.0cm) LVDs3.3 (2.5-4.0cm) PWs0.9 cm Technically difficult study due to poor acoustical windows. Patients position. Normal left ventricular chamber size, systolic function and wall motion. Left ventricular ejection fraction estimated to be 55-60%. No evidence of left ventricular hypertrophy. No evidence of pericardial or pleural effusion. Mild bi-atrial and right ventricular enlargements. Focal aortic valve sclerosis with adequate cusp excursion. Thickened mitral valve leaflets with normal excursion. Mild mitral annulus and aortic root calcification. Pulmonic valve not well visualized. Normal tricuspid valve structure. IVC is not obtainable A color flow and spectral Doppler study was performed and revealed: Mild aortic regurgitation. Trace mitral regurgitation. Mitral inflow velocities indicates possible pseudo normalization pattern implying significant left ventricular diastolic dysfunction. Mild tricuspid regurgitation. Tricuspid systolic velocities suggests peak right ventricular systolic pressure of 35mmHg Consistent with mild pulmonary hypertension.
[2017-03-19] MEDS: Piperacillin/Tazobactam 4.5 GM in NS 110 ML IVPB SCH ×2 (16:12→22:08)
[2017-03-19] MEDS: Albuterol/Ipratropium 3ml neb HHN SCH ×2 (16:48→19:14)
[2017-03-19] MEDS: Xarelto 15mg tab ORAL SCH (17:37)
[2017-03-19] MEDS: guaiFENesin ER 600mg tab ORAL SCH (17:38)
[2017-03-19] MEDS: Docusate 100mg cap ORAL SCH (21:00)
[2017-03-19] MEDS ORDERED: Heparin 5000 units/ml inj SUBQ SCH (21:00)
[2017-03-19] MEDS: Tamsulosin 0.4mg cap ORAL SCH (21:02)
[2017-03-19] MEDS: Metoprolol 25mg tab ORAL SCH (21:02)
--- NOTE | 2017-03-19 21:45 | Consultation ---
DATE OF CONSULTATION: 03/19/2017 CARDIOLOGY CONSULTATION CONSULTING PHYSICIAN: Isaac Amezcua M.D. REFERRING PHYSICIAN: Carlos Lu M.D. REASON FOR CONSULTATION: Atrial fibrillation and elevated cardiac enzymes. HISTORY OF PRESENT ILLNESS: The patient is an 86-year-old gentleman with history of hypertension, chronic atrial fibrillation, history of major depressive disorder, and dementia who was brought by paramedics for increased altered mental status. The patient also had fever and productive cough. The patient was sent from [facility]. The patient was admitted. His EKG showed atrial fibrillation with rapid ventricular response, heart rate of 115 beats per minute. Cardiac Electrophysiology consultation was requested for further evaluation and management. REVIEW OF SYSTEM: Limited in view of his mental status. Most of the information was obtained by reviewing the records and discussion with the nurse. PAST MEDICAL HISTORY: 1. Hypertension. 2. Chronic atrial fibrillation. 3. Dementia. 4. History of GI bleed. 5. Major depressive disorder. FAMILY HISTORY: Noncontributory. SOCIAL HISTORY: He lives in a residential. Does not smoke or drink alcohol. PHYSICAL EXAMINATION: VITAL SIGNS: Blood pressure is 114/65, pulse 80, respirations 18, and temperature 98.9. HEAD AND NECK: Showed no JVD. LUNGS: Clear. CARDIOVASCULAR: Shows regular S1 and S2 with no gallop or murmur. ABDOMEN: Soft. EXTREMITIES: No pitting edema. LABORATORY AND DIAGNOSTIC DATA: His EKG showed atrial fibrillation with rapid ventricular response, heart rate 115 beats per minute. Labs show white count 12.1, hemoglobin 14.7, hematocrit 43, and platelet count of 251. Sodium 139, potassium 4.0, BUN 22, creatinine 1.4, and glucose 131. Troponin is 0.073. BNP is . ASSESSMENT AND PLAN: 1. Troponin elevation. The patient does not have any chest pain neither he is demented. We will get the serial cardiac enzymes. We will get an echocardiogram to evaluate for ejection fraction and wall motion abnormality. At this time, we will treat him medically with aspirin, Lopressor, and Lipitor until we get further information. 2. Chronic atrial fibrillation. The patient is on Xarelto 15 mg daily. I will add Lopressor 25 mg twice a day in view of elevated troponin and also for better rate control during atrial fibrillation. 3. Fever and sepsis. The patient was started on vancomycin and Zosyn empirically. 4. Hypertension. I will discontinue Norvasc and continue him on beta-esteban to help with elevated troponin as well as atrial fibrillation with rapid ventricular response. 5. Dementia. 6. Altered mental status likely due to sepsis. Thank you very much, Dr. Lu, for allowing me to participate in the care of this patient. Please do not hesitate to contact me for any questions regarding my evaluation. Isaac Amezcua M.D. DR: NILA JOB#: [id number] CC:
--- NOTE | 2017-03-19 21:45 | Infectious Diseases Prog Note ---
Assessment/Plan Assessment/Plan Full consult to follow: A) 1) sepsis, leukocytosis, fevers, ams 2) congestion, ? pna 3) allergies - negative P) 1) vancomycin and zosyn 2) check cultures, labs and chest x-ray 3) thank you Subjective Allergies: Coded Allergies: No Known Allergies (Unverified , 03/19/17) Objective Vital Signs Last 24 Hour Vital Signs Date Time Temp Pulse Resp B/P (MAP) Pulse Ox O2 Delivery O2 Flow Rate FiO2 03/19/17 21:02 74 143/72 03/19/17 20:00 98.2 72 16 140/70 96 03/19/17 19:29 91 18 95 Room Air 21 03/19/17 19:16 94 18 93 Room Air 03/19/17 16:50 81 17 93 Room Air 03/19/17 16:00 82 20 120/75 99 Nasal Cannula 4.0 03/19/17 16:00 102 03/19/17 14:48 79 114/65 03/19/17 12:40 98.9 79 18 114/65 100 Nasal Cannula 4.0 03/19/17 12:00 79 18 114/65 100 Nasal Cannula 4.0 03/19/17 11:00 98.9 87 21 128/56 98 Nasal Cannula 4.0 03/19/17 10:30 80 20 139/60 100 Nasal Cannula 4.0 03/19/17 10:15 80 20 106/73 99 Nasal Cannula 4.0 03/19/17 10:05 88 21 93/63 100 Nasal Cannula 4.0 03/19/17 09:40 77 18 111/64 93 Nasal Cannula 2.0 03/19/17 09:30 79 19 85/42 98 Nasal Cannula 2.0 03/19/17 09:15 79 20 88/59 97 Nasal Cannula 2.0 03/19/17 08:45 85 19 104/57 100 Nasal Cannula 2.0 03/19/17 08:30 79 21 92/41 96 Nasal Cannula 2.0 03/19/17 08:15 85 21 82/41 94 Nasal Cannula 2.0 03/19/17 08:09 93 21 101/43 98 Nasal Cannula 2.0 03/19/17 08:08 98.8 03/19/17 08:00 98.8 85 20 90/59 92 Nasal Cannula 2.0 03/19/17 06:57 100.2 97 25 92/69 98 Nasal Cannula 2.0 03/19/17 06:34 100.2 115 18 112/65 95 Room Air Height (Feet): 6 Weight (Pounds): 175 Microbiology Date/Time Source Procedure Growth Status 03/19/17 06:55 Nasal Nares Influenza Types A,B Antigen ([facility]) - Final Complete Laboratory Tests Test 03/19/17 06:40 03/19/17 07:02 03/19/17 14:05 03/19/17 21:20 White Blood Count 12.1 K/UL (4.8-10.8) H Red Blood Count 4.42 M/UL (4.70-6.10) L Hemoglobin 14.7 G/DL (14.2-18.0) Hematocrit 43.0 % (42.0-52.0) Mean Corpuscular Volume 97 FL (80-99) Mean Corpuscular Hemoglobin 33.3 PG (27.0-31.0) H Mean Corpuscular Hemoglobin Concent 34.2 G/DL (32.0-36.0) Red Cell Distribution Width 12.7 % (11.6-14.8) Platelet Count 251 K/UL (150-450) Mean Platelet Volume 7.8 FL (6.5-10.1) Neutrophils (%) (Auto) % (45.0-75.0) Lymphocytes (%) (Auto) % (20.0-45.0) Monocytes (%) (Auto) % (1.0-10.0) Eosinophils (%) (Auto) % (0.0-3.0) Basophils (%) (Auto) % (0.0-2.0) Differential Total Cells Counted 100 Neutrophils % (Manual) 82 % (45-75) H Lymphocytes % (Manual) 12 % (20-45) L Monocytes % (Manual) 5 % (1-10) Eosinophils % (Manual) 0 % (0-3) Basophils % (Manual) 1 % (0-2) Band Neutrophils 0 % (0-8) Platelet Estimate Adequate Platelet Morphology Normal Urine Color Yellow Urine Appearance Clear Urine pH 6 (4.5-8.0) Urine Specific Palmer 1.015 (1.005-1.035) Urine Protein 2+ (NEGATIVE) H Urine Glucose (UA) Negative (NEGATIVE) Urine Ketones Negative (NEGATIVE) Urine Occult Blood Negative (NEGATIVE) Urine Nitrite Negative (NEGATIVE) Urine Bilirubin Negative (NEGATIVE) Urine Urobilinogen 1 MG/DL (0.0-1.0) H Urine Leukocyte Esterase Negative (NEGATIVE) Urine RBC 0-2 /HPF (0 - 0) H Urine WBC 0 /HPF (0 - 0) Urine Squamous Epithelial Cells Occasional /LPF Urine Bacteria None /HPF (NONE) Urine Mucus Few /LPF (NONE/OCC) H Sodium Level 139 MMOL/L (136-145) Potassium Level 4.0 MMOL/L (3.5-5.1) Chloride Level 104 MMOL/L (98-107) Carbon Dioxide Level 26 MMOL/L (21-32) Anion Gap 9 mmol/L (5-15) Blood Urea Nitrogen 26 mg/dL (7-18) H Creatinine 1.4 MG/DL (0.55-1.30) H Estimat Glomerular Filtration Rate mL/min (>60) Glucose Level 131 MG/DL (74-106) H Lactic Acid Level 1.60 mmol/L (0.66-2.22) Calcium Level 9.7 MG/DL (8.5-10.1) Total Bilirubin 0.8 MG/DL (0.2-1.0) Aspartate Amino Transf (AST/SGOT) 26 U/L (15-37) Alanine Aminotransferase (ALT/SGPT) 29 U/L (12-78) Alkaline Phosphatase 87 U/L (46-116) Total Creatine Kinase 43 U/L (26-308) Creatine Kinase MB < 0.5 NG/ML (0.0-3.6) Creatine Kinase MB Relative Index 1.1 Troponin I 0.073 ng/mL (0.000-0.056) 0.049 ng/mL (0.000-0.056) Pending Pro-B-Type Natriuretic Peptide 4958 pg/mL (0-125) H Total Protein 8.3 G/DL (6.4-8.2) H Albumin 3.2 G/DL (3.4-5.0) L Globulin 5.1 g/dL Albumin/Globulin Ratio 0.6 (1.0-2.7) L Arterial Blood pH 7.446 (7.350-7.450) Arterial Blood Partial Pressure CO2 33.9 mmHg (35.0-45.0) L Arterial Blood Partial Pressure O2 76.7 mmHg (75.0-100.0) Arterial Blood HCO3 22.5 mmol/L (22.0-26.0) Arterial Blood Oxygen Saturation 95.3 % (92.0-98.0) Arterial Blood Base Excess -0.5 Tomy Test Positive Current Medications Medications (Trade) Dose Ordered Sig/Jeny Route PRN Reason Start Time Stop Time Status Last Admin Dose Admin Acetaminophen (Tylenol) 650 mg Q4H PRN ORAL Mild Pain (Pain Scale 1-3) 03/19/17 10:00 04/18/17 09:59 Acetaminophen (Tylenol) 650 mg Q4H PRN ORAL fever 03/19/17 10:00 04/18/17 09:59 Acetaminophen (Tylenol) 650 mg Q4H PRN RECTAL Mild Pain (Pain Scale 1-3) 03/19/17 09:00 04/18/17 08:59 Albuterol/ Ipratropium (Albuterol/ Ipratropium) 3 ml Q4H PRN HHN Shortness of Breath 03/19/17 14:00 03/24/17 13:59 Albuterol/ Ipratropium (Albuterol/ Ipratropium) 3 ml Q6HRT HHN 03/19/17 14:30 03/24/17 14:29 03/19/17 19:14 Aspirin (Ecotrin) 81 mg DAILY ORAL 03/20/17 09:00 04/19/17 08:59 Bisacodyl (Dulcolax) 10 mg HSPRN PRN RECTAL Constipation 1st Line Agent 03/19/17 09:00 04/18/17 08:59 Dextrose (Dextrose 50%) STAT PRN IV Hypoglycemia 03/19/17 10:00 04/18/17 09:59 Docusate Sodium (Colace) 100 mg EVERY 12 HOURS ORAL 03/19/17 21:00 04/18/17 20:59 Guaifenesin (Mucinex ER) 600 mg TWICE A DAY ORAL 03/19/17 18:00 04/18/17 17:59 03/19/17 17:38 Metoprolol Tartrate (Lopressor) 25 mg Q12HR ORAL 03/19/17 21:00 04/18/17 20:59 03/19/17 21:02 Multivitamins Therapeutic (Therapeutic Multivitamin) 1 ea DAILY ORAL 03/19/17 09:00 04/18/17 08:59 03/19/17 14:48 Ondansetron HCl (Zofran) 4 mg Q6H PRN IVP Nausea & Vomiting 03/19/17 10:00 04/18/17 09:59 Paroxetine HCl (Paxil) 5 mg DAILY ORAL 03/19/17 09:00 04/18/17 08:59 03/19/17 14:48 Piperacillin Sod/ Tazobactam Sod 4.5 gm/Sodium Chloride 110 ml @ 27.5 mls/hr Q8HR IVPB 03/19/17 14:00 03/26/17 13:59 03/19/17 16:12 Polyethylene Glycol (Miralax) 17 gm HSPRN PRN ORAL Constipation 2nd Line Agent 03/19/17 10:00 04/18/17 09:59 Rivaroxaban (Xarelto) 15 mg QPM ORAL 03/19/17 16:30 04/18/17 16:29 03/19/17 17:37 Sodium Chloride 1,000 ml @ 75 mls/hr [id number] IV 03/19/17 15:00 04/18/17 14:59 03/19/17 16:12 Tamsulosin HCl (Flomax) 0.4 mg BEDTIME ORAL 03/19/17 21:00 04/18/17 20:59 03/19/17 21:02 Vancomycin HCl (Vanco rx to dose) 1 ea DAILY PRN MISC Per rx protocol 03/19/17 09:00 04/18/17 08:59 Vancomycin HCl 1 gm/Dextrose 275 ml @ 183.708 mls/hr Q24H IVPB 03/20/17 08:00 03/25/17 07:59 LILLIE LOMELI Mar 19, 2017 21:45
[2017-03-20] VITALS: BP 127/63
[2017-03-20] MEDS: Albuterol/Ipratropium 3ml neb HHN SCH ×4 (01:44→19:51)
[2017-03-20 04:00] VITALS: BP 107/57
[2017-03-20 04:18] LABS: HEMATOCRIT 35.1 % (42.0-52.0); HEMOGLOBIN 12.2 G/DL (14.2-18.0); MEAN CORPUSCULAR VOLUME 99 FL (80-99); RED BLOOD COUNT 3.54 M/UL (4.70-6.10)
[2017-03-20] MEDS: Piperacillin/Tazobactam 4.5 GM in NS 110 ML IVPB SCH ×3 (05:01→21:04)
[2017-03-20 07:06] LABS: ANION GAP 18 mmol/L (5-15); BLOOD UREA NITROGEN 29 mg/dL (7-18); CALCIUM 8.8 MG/DL (8.5-10.1); CARBON DIOXIDE 18 MMOL/L (21-32); CHLORIDE 109 MMOL/L (98-107); CHOLESTEROL 92 MG/DL (< 200); CREATININE 1.3 MG/DL (0.55-1.30); HDL CHOLESTEROL 48 MG/DL (40-60); POTASSIUM 4.6 MMOL/L (3.5-5.1); SODIUM 144 MMOL/L (136-145); TRIGLYCERIDES 34 MG/DL (30-150)
[2017-03-20 08:00] VITALS: BP 136/72
[2017-03-20] MEDS: PARoxetine 10mg tab ORAL SCH (08:24)
[2017-03-20] MEDS: Multivitamin w/Minerals tab ORAL SCH (08:24)
[2017-03-20] MEDS: Vancomycin 1gm/D5W 275ml IVPB SCH ×2 (08:24)
[2017-03-20] MEDS: Docusate 100mg cap ORAL SCH ×2 (08:25→20:55)
[2017-03-20] MEDS: Aspirin EC 81mg tab ORAL SCH (08:25)
[2017-03-20] MEDS: guaiFENesin ER 600mg tab ORAL SCH ×2 (08:26→17:36)
[2017-03-20] MEDS: Metoprolol 25mg tab ORAL SCH ×2 (08:35→20:55)
[2017-03-20 08:53] LABS: PLATELET COUNT 250 K/UL (150-450)
--- NOTE | 2017-03-20 10:52 | General Progress Note ---
Assessment/Plan Problem List: (1) Sepsis ICD Codes: A41.9 - Sepsis, unspecified organism SNOMED: 57443893 (2) HCAP (healthcare-associated pneumonia) ICD Codes: J18.9 - Pneumonia, unspecified organism SNOMED: 366384014 (3) RODOLFO (acute kidney injury) ICD Codes: N17.9 - Acute kidney failure, unspecified SNOMED: 71234160 (4) Acute toxic metabolic encephalopathy (5) Elevated troponin Assessment & Plan: likely NSTEMI type 2 in setting of sepsis ICD Codes: R74.8 - Abnormal levels of other serum enzymes SNOMED: 163390259, 053098847, 130932429 (6) Chronic a-fib ICD Codes: I48.2 - Chronic atrial fibrillation SNOMED: 532093015 (7) GERD (gastroesophageal reflux disease) ICD Codes: K21.9 - Gastro-esophageal reflux disease without esophagitis SNOMED: 914175064 (8) HTN (hypertension) ICD Codes: I10 - Essential (primary) hypertension SNOMED: 41636187 (9) BPH (benign prostatic hyperplasia) ICD Codes: N40.0 - Benign prostatic hyperplasia without lower urinary tract symptoms SNOMED: 636691567 (10) Alzheimer's dementia ICD Codes: G30.9 - Alzheimer's disease, unspecified; F02.80 - Dementia in other diseases classified elsewhere without behavioral disturbance SNOMED: 04673330 Status: stable Assessment/Plan Monitor on tele Pulm consulted ID consulted Empiric vanco and zosyn (03/19-) F/u cultures Duonebs ATC and PRN Guaifenesin Puree necktar thick diet per PROFILER HAND F/u video swallow study IVFs given RODOLFO Hold ARB given RODOLFO Trend BMP Cardiology consult given elevated trop Trop now downtrending, peaked at 0.07 Check TTE--EF 55% ASA 81mg daily Cont SNF meds Pain control, bowel regimen Supportive care DVT Prophylaxis: SCD, xarelto Code Status: Full Hospital Classification Declaration: Based on this initial evaluation, and depending on the patient's clinical course, I anticipate that this patient will require hospitalization for 1-2 days for sepsis, PNA, and close respiratory/ hemodynamic monitoring. Disposition: Once the patient is stable to leave the hospital, I anticipate the patient will likely be discharged to the following environment: back to SNF Discussed with patient/family, nursing staff, SW/CM, pulmonology, ID, cardiology regarding clinical status, treatment course, and disposition planning. D/w ID re abx. D/w PROFILER HAND re diet, video swallow study Time of note may not reflect time of encounter. Subjective Date patient seen: Mar 20, 2017 Time patient seen: 10:52 ROS Limited/Unobtainable: Yes Allergies: Coded Allergies: No Known Allergies (Unverified , 03/19/17) Subjective No acute o/n events WBC downtrending Seen by PROFILER HAND who recommends puree, necktar thick liquid diet and video swallow study Pt more awake, alert Pt cont w/ cough, congestion. SOB improving ROS limited 2/2 dementia Objective Last 24 Hour Vital Signs Date Time Temp Pulse Resp B/P (MAP) Pulse Ox O2 Delivery O2 Flow Rate FiO2 03/20/17 08:35 91 136/72 03/20/17 08:30 85 20 99 Room Air 21 03/20/17 08:21 21 03/20/17 08:20 105 18 97 Room Air 03/20/17 08:00 97.8 91 18 136/72 93 03/20/17 04:00 82 03/20/17 04:00 97.7 85 20 107/57 93 03/20/17 02:00 81 18 96 Room Air 21 03/20/17 01:43 84 20 92 Room Air 03/20/17 01:43 21 03/20/17 00:00 74 03/20/17 00:00 97.7 89 16 127/63 97 03/19/17 21:02 74 143/72 03/19/17 20:00 98.2 72 16 140/70 96 03/19/17 20:00 91 03/19/17 19:29 91 18 95 Room Air 21 03/19/17 19:16 94 18 93 Room Air 03/19/17 16:50 81 17 93 Room Air 03/19/17 16:00 82 20 120/75 99 Nasal Cannula 4.0 03/19/17 16:00 102 03/19/17 14:48 79 114/65 03/19/17 12:40 98.9 79 18 114/65 100 Nasal Cannula 4.0 03/19/17 12:00 79 18 114/65 100 Nasal Cannula 4.0 03/19/17 11:00 98.9 87 21 128/56 98 Nasal Cannula 4.0 Intake and Output 03/19/17 03/20/17 19:00 07:00 Intake Total 2110 ml 832.5 ml Output Total 600 ml 500 ml Balance 1510 ml 332.5 ml IV Total 2110 ml 832.5 ml Output Urine Total 600 ml 500 ml # Bowel Movements 1 Laboratory Tests 03/19/17 14:05: Troponin I 0.049 03/19/17 21:20: Troponin I 0.037 03/20/17 03:20: Troponin I 0.034, White Blood Count 9.0, Red Blood Count 3.54L, Hemoglobin 12.2L , Hematocrit 35.1L, Mean Corpuscular Volume 99, Mean Corpuscular Hemoglobin 34.4H, Mean Corpuscular Hemoglobin Concent 34.8, Red Cell Distribution Width 13.0, Platelet Count 250, Mean Platelet Volume 8.3, Neutrophils (%) (Auto) , Lymphocytes (%) (Auto) , Monocytes (%) (Auto) , Eosinophils (%) (Auto) , Basophils (%) (Auto) , Differential Total Cells Counted 100, Neutrophils % ( Manual) 84H, Lymphocytes % (Manual) 10L, Monocytes % (Manual) 6, Eosinophils % ( Manual) 0, Basophils % (Manual) 0, Band Neutrophils 0, Platelet Estimate Adequate, Platelet Morphology Normal, Red Blood Cell Morphology Normal, Sodium Level 144, Potassium Level 4.6, Chloride Level 109H, Carbon Dioxide Level 18L, Anion Gap 18H, Blood Urea Nitrogen 29H, Creatinine 1.3, Estimat Glomerular Filtration Rate , Glucose Level 106, Calcium Level 8.8, Magnesium Level 1.6L, Triglycerides Level 34, Cholesterol Level 92, LDL Cholesterol 41, HDL Cholesterol 48, Cholesterol/HDL Ratio 1.9L Height (Feet): 6 Weight (Pounds): 175 Objective General: alert, cooperative, no distress, appears stated age, A&Ox1 (baseline) Head: normocephalic, without obvious abnormality, atraumatic Eyes: conjunctivae/corneas clear. PERRL, EOM's intact Throat: lips, mucosa, and tongue normal. MMM Neck: supple, symmetrical, trachea midline, and no JVD Lungs: +rhonchi b/l Heart: regular rate and rhythm, S1, S2 normal, no murmur, click, rub or gallop Abdomen: soft, non-tender, non-distended, bowel sounds normal Extremities: extremities normal, atraumatic, no cyanosis or edema Pulses: 2+ and symmetric Skin: skin color, texture, turgor normal; no rashes or lesions Neurologic: grossly normal, no focal deficits Gogo Hubbard M.D. Mar 20, 2017 10:52
[2017-03-20 12:00] VITALS: BP 133/70
--- NOTE | 2017-03-20 12:19 | Diagnostic Imaging Report ---
Indication: Dyspnea Comparison: 03/19/2017 A single view chest radiograph was obtained. Findings: No definite infiltrate or pulmonary vascular congestion identified. The heart is enlarged. The aorta is mildly enlarged consistent with atherosclerotic vascular disease. The bones are osteopenic. Impression: No acute disease
[2017-03-20 16:00] VITALS: BP 125/62
--- NOTE | 2017-03-20 16:02 | Cardiac Electrophysiology PN ---
Assessment/Plan Assessment/Plan 1. Troponin elevation. Denies any chest pain. Ruled out for AK. EF 55%. On aspirin, Lopressor, and Lipitor. 2. Chronic atrial fibrillation. The patient is on Xarelto 15 mg daily. On Lopressor 25 mg twice a day. 3. Fever and sepsis. On vancomycin and Zosyn empirically. 4. Hypertension. On Lopressor 25 bid. 5. Dementia. 6. Altered mental status likely due to sepsis. ADRIANA RN Subjective Subjective Feeling better today. No events . In atrial fib with controlled rate. Objective Last 24 Hour Vital Signs Date Time Temp Pulse Resp B/P (MAP) Pulse Ox O2 Delivery O2 Flow Rate FiO2 03/20/17 12:41 71 18 100 Room Air 21 03/20/17 12:33 21 03/20/17 12:31 72 20 96 Room Air 03/20/17 12:00 97.6 79 18 133/70 97 03/20/17 08:35 91 136/72 03/20/17 08:30 85 20 99 Room Air 21 03/20/17 08:21 21 03/20/17 08:20 105 18 97 Room Air 03/20/17 08:00 97.8 91 18 136/72 93 03/20/17 04:00 82 03/20/17 04:00 97.7 85 20 107/57 93 03/20/17 02:00 81 18 96 Room Air 21 03/20/17 01:43 84 20 92 Room Air 03/20/17 01:43 21 03/20/17 00:00 74 03/20/17 00:00 97.7 89 16 127/63 97 03/19/17 21:02 74 143/72 03/19/17 20:00 98.2 72 16 140/70 96 03/19/17 20:00 91 03/19/17 19:29 91 18 95 Room Air 21 03/19/17 19:16 94 18 93 Room Air 03/19/17 16:50 81 17 93 Room Air 03/19/17 16:00 82 20 120/75 99 Nasal Cannula 4.0 03/19/17 16:00 102 Intake and Output 03/19/17 03/20/17 19:00 07:00 Intake Total 2110 ml 832.5 ml Output Total 600 ml 500 ml Balance 1510 ml 332.5 ml IV Total 2110 ml 832.5 ml Output Urine Total 600 ml 500 ml # Bowel Movements 1 Laboratory Tests Test 03/19/17 21:20 03/20/17 03:20 Troponin I 0.037 ng/mL (0.000-0.056) 0.034 ng/mL (0.000-0.056) White Blood Count 9.0 K/UL (4.8-10.8) Red Blood Count 3.54 M/UL (4.70-6.10) L Hemoglobin 12.2 G/DL (14.2-18.0) L Hematocrit 35.1 % (42.0-52.0) L Mean Corpuscular Volume 99 FL (80-99) Mean Corpuscular Hemoglobin 34.4 PG (27.0-31.0) H Mean Corpuscular Hemoglobin Concent 34.8 G/DL (32.0-36.0) Red Cell Distribution Width 13.0 % (11.6-14.8) Platelet Count 250 K/UL (150-450) Mean Platelet Volume 8.3 FL (6.5-10.1) Neutrophils (%) (Auto) % (45.0-75.0) Lymphocytes (%) (Auto) % (20.0-45.0) Monocytes (%) (Auto) % (1.0-10.0) Eosinophils (%) (Auto) % (0.0-3.0) Basophils (%) (Auto) % (0.0-2.0) Differential Total Cells Counted 100 Neutrophils % (Manual) 84 % (45-75) H Lymphocytes % (Manual) 10 % (20-45) L Monocytes % (Manual) 6 % (1-10) Eosinophils % (Manual) 0 % (0-3) Basophils % (Manual) 0 % (0-2) Band Neutrophils 0 % (0-8) Platelet Estimate Adequate Platelet Morphology Normal Red Blood Cell Morphology Normal Sodium Level 144 MMOL/L (136-145) Potassium Level 4.6 MMOL/L (3.5-5.1) Chloride Level 109 MMOL/L (98-107) H Carbon Dioxide Level 18 MMOL/L (21-32) L Anion Gap 18 mmol/L (5-15) H Blood Urea Nitrogen 29 mg/dL (7-18) H Creatinine 1.3 MG/DL (0.55-1.30) Estimat Glomerular Filtration Rate mL/min (>60) Glucose Level 106 MG/DL (74-106) Calcium Level 8.8 MG/DL (8.5-10.1) Magnesium Level 1.6 MG/DL (1.8-2.4) L Triglycerides Level 34 MG/DL (30-150) Cholesterol Level 92 MG/DL (< 200) LDL Cholesterol 41 mg/dL (<100) HDL Cholesterol 48 MG/DL (40-60) Cholesterol/HDL Ratio 1.9 (3.3-4.4) L Microbiology Date/Time Source Procedure Growth Status 03/19/17 06:55 Nasal Nares Influenza Types A,B Antigen ([facility]) - Final Complete Objective HEAD AND NECK: Showed no JVD. LUNGS: Clear. CARDIOVASCULAR: Shows regular S1 and S2 with no gallop or murmur. ABDOMEN: Soft. EXTREMITIES: No pitting edema. DOROTHY ARMSTRONG Mar 20, 2017 16:02
[2017-03-20] MEDS: Xarelto 15mg tab ORAL SCH (17:07)
[2017-03-20 20:48] VITALS: BP 129/66
[2017-03-20] MEDS: Tamsulosin 0.4mg cap ORAL SCH (20:55)
--- NOTE | 2017-03-20 21:45 | Infectious Diseases Prog Note ---
Assessment/Plan Assessment/Plan Full consult dictated: A) 1) sepsis, leukocytosis, fevers, ams 2) congestion, ? pna 3) allergies - negative P) 1) vancomycin and zosyn for now 2) check cultures, labs and chest x-ray, check sc 3) orders noted Subjective Constitutional: Denies: fever HEENT: Reports: congestion Respiratory: Reports: shortness of breath Cardiovascular: Denies: chest pain Gastrointestinal/Abdominal: Denies: nausea, vomiting, diarrhea Allergies: Coded Allergies: No Known Allergies (Unverified , 03/19/17) Objective Vital Signs Last 24 Hour Vital Signs Date Time Temp Pulse Resp B/P (MAP) Pulse Ox O2 Delivery O2 Flow Rate FiO2 03/20/17 20:55 92 129/66 03/20/17 20:48 98.4 92 18 129/66 96 Room Air 03/20/17 20:00 92 20 98 Room Air 21 03/20/17 20:00 92 03/20/17 19:50 89 20 94 Room Air 03/20/17 16:00 86 03/20/17 16:00 97.0 80 18 125/62 97 03/20/17 12:41 71 18 100 Room Air 21 03/20/17 12:33 21 03/20/17 12:31 72 20 96 Room Air 03/20/17 12:00 77 03/20/17 12:00 97.6 79 18 133/70 97 03/20/17 08:35 91 136/72 03/20/17 08:30 85 20 99 Room Air 21 03/20/17 08:21 21 03/20/17 08:20 105 18 97 Room Air 03/20/17 08:00 100 03/20/17 08:00 97.8 91 18 136/72 93 03/20/17 04:00 82 03/20/17 04:00 97.7 85 20 107/57 93 03/20/17 02:00 81 18 96 Room Air 21 03/20/17 01:43 84 20 92 Room Air 03/20/17 01:43 21 03/20/17 00:00 74 03/20/17 00:00 97.7 89 16 127/63 97 Height (Feet): 6 Weight (Pounds): 175 General Appearance: no acute distress HEENT: normocephalic, atraumatic, anicteric, mucous membranes moist Respiratory/Chest: crackles/rales, rhonchi - bilaterally Cardiovascular: normal rate, regular rhythm Abdomen: normal bowel sounds, no organomegaly, non distended Skin: no rash Microbiology Date/Time Source Procedure Growth Status 03/19/17 06:55 Nasal Nares Influenza Types A,B Antigen ([facility]) - Final Complete Laboratory Tests Test 03/20/17 03:20 White Blood Count 9.0 K/UL (4.8-10.8) Red Blood Count 3.54 M/UL (4.70-6.10) L Hemoglobin 12.2 G/DL (14.2-18.0) L Hematocrit 35.1 % (42.0-52.0) L Mean Corpuscular Volume 99 FL (80-99) Mean Corpuscular Hemoglobin 34.4 PG (27.0-31.0) H Mean Corpuscular Hemoglobin Concent 34.8 G/DL (32.0-36.0) Red Cell Distribution Width 13.0 % (11.6-14.8) Platelet Count 250 K/UL (150-450) Mean Platelet Volume 8.3 FL (6.5-10.1) Neutrophils (%) (Auto) % (45.0-75.0) Lymphocytes (%) (Auto) % (20.0-45.0) Monocytes (%) (Auto) % (1.0-10.0) Eosinophils (%) (Auto) % (0.0-3.0) Basophils (%) (Auto) % (0.0-2.0) Differential Total Cells Counted 100 Neutrophils % (Manual) 84 % (45-75) H Lymphocytes % (Manual) 10 % (20-45) L Monocytes % (Manual) 6 % (1-10) Eosinophils % (Manual) 0 % (0-3) Basophils % (Manual) 0 % (0-2) Band Neutrophils 0 % (0-8) Platelet Estimate Adequate Platelet Morphology Normal Red Blood Cell Morphology Normal Sodium Level 144 MMOL/L (136-145) Potassium Level 4.6 MMOL/L (3.5-5.1) Chloride Level 109 MMOL/L (98-107) H Carbon Dioxide Level 18 MMOL/L (21-32) L Anion Gap 18 mmol/L (5-15) H Blood Urea Nitrogen 29 mg/dL (7-18) H Creatinine 1.3 MG/DL (0.55-1.30) Estimat Glomerular Filtration Rate mL/min (>60) Glucose Level 106 MG/DL (74-106) Calcium Level 8.8 MG/DL (8.5-10.1) Magnesium Level 1.6 MG/DL (1.8-2.4) L Troponin I 0.034 ng/mL (0.000-0.056) Triglycerides Level 34 MG/DL (30-150) Cholesterol Level 92 MG/DL (< 200) LDL Cholesterol 41 mg/dL (<100) HDL Cholesterol 48 MG/DL (40-60) Cholesterol/HDL Ratio 1.9 (3.3-4.4) L Current Medications Medications (Trade) Dose Ordered Sig/Jeny Route PRN Reason Start Time Stop Time Status Last Admin Dose Admin Acetaminophen (Tylenol) 650 mg Q4H PRN ORAL Mild Pain (Pain Scale 1-3) 03/19/17 10:00 04/18/17 09:59 Acetaminophen (Tylenol) 650 mg Q4H PRN ORAL fever 03/19/17 10:00 04/18/17 09:59 Acetaminophen (Tylenol) 650 mg Q4H PRN RECTAL Mild Pain (Pain Scale 1-3) 03/19/17 09:00 04/18/17 08:59 Albuterol/ Ipratropium (Albuterol/ Ipratropium) 3 ml Q4H PRN HHN Shortness of Breath 03/19/17 14:00 03/24/17 13:59 Albuterol/ Ipratropium (Albuterol/ Ipratropium) 3 ml Q6HRT HHN 03/19/17 14:30 03/24/17 14:29 03/20/17 19:51 Aspirin (Ecotrin) 81 mg DAILY ORAL 03/20/17 09:00 04/19/17 08:59 03/20/17 08:25 Bisacodyl (Dulcolax) 10 mg HSPRN PRN RECTAL Constipation 1st Line Agent 03/19/17 09:00 04/18/17 08:59 Dextrose (Dextrose 50%) STAT PRN IV Hypoglycemia 03/19/17 10:00 04/18/17 09:59 Docusate Sodium (Colace) 100 mg EVERY 12 HOURS ORAL 03/19/17 21:00 04/18/17 20:59 03/20/17 20:55 Guaifenesin (Mucinex ER) 600 mg TWICE A DAY ORAL 03/19/17 18:00 04/18/17 17:59 03/20/17 17:36 Metoprolol Tartrate (Lopressor) 25 mg Q12HR ORAL 03/19/17 21:00 04/18/17 20:59 03/20/17 20:55 Multivitamins Therapeutic (Therapeutic Multivitamin) 1 ea DAILY ORAL 03/19/17 09:00 04/18/17 08:59 03/20/17 08:24 Ondansetron HCl (Zofran) 4 mg Q6H PRN IVP Nausea & Vomiting 03/19/17 10:00 04/18/17 09:59 Paroxetine HCl (Paxil) 5 mg DAILY ORAL 03/19/17 09:00 04/18/17 08:59 03/20/17 08:24 Piperacillin Sod/ Tazobactam Sod 4.5 gm/Sodium Chloride 110 ml @ 27.5 mls/hr Q8HR IVPB 03/19/17 14:00 03/26/17 13:59 03/20/17 21:04 Polyethylene Glycol (Miralax) 17 gm HSPRN PRN ORAL Constipation 2nd Line Agent 03/19/17 10:00 04/18/17 09:59 Rivaroxaban (Xarelto) 15 mg QPM ORAL 03/19/17 16:30 04/18/17 16:29 03/20/17 17:07 Sodium Chloride 1,000 ml @ 75 mls/hr [id number] IV 03/19/17 15:00 04/18/17 14:59 03/20/17 17:07 Tamsulosin HCl (Flomax) 0.4 mg BEDTIME ORAL 03/19/17 21:00 04/18/17 20:59 03/20/17 20:55 Vancomycin HCl (Vanco rx to dose) 1 ea DAILY PRN MISC Per rx protocol 03/19/17 09:00 04/18/17 08:59 Vancomycin HCl 1 gm/Dextrose 275 ml @ 183.708 mls/hr Q24H IVPB 03/20/17 08:00 03/25/17 07:59 03/20/17 08:24 LILLIE LOMELI Mar 20, 2017 21:45
[2017-03-20 22:49] LABS: BASOPHILS % (AUTO) 0.7 % (0.0-2.0); EOSINOPHILS % (AUTO) 0.3 % (0.0-3.0); HEMATOCRIT 34.9 % (42.0-52.0); HEMOGLOBIN 11.1 G/DL (14.2-18.0); LYMPHOCYTES % (AUTO) 13.6 % (20.0-45.0); MEAN CORPUSCULAR VOLUME 98 FL (80-99); MONOCYTES % (AUTO) 8.5 % (1.0-10.0); PLATELET COUNT 192 K/UL (150-450); RED BLOOD COUNT 3.55 M/UL (4.70-6.10); RED CELL DISTRIBUTION WIDTH 12.7 % (11.6-14.8); WHITE BLOOD COUNT 7.2 K/UL (4.8-10.8)
[2017-03-20 23:00] LABS: ANION GAP 5 mmol/L (5-15); BLOOD UREA NITROGEN 27 mg/dL (7-18); CALCIUM 8.6 MG/DL (8.5-10.1); CARBON DIOXIDE 28 MMOL/L (21-32); CHLORIDE 106 MMOL/L (98-107); CREATININE 1.3 MG/DL (0.55-1.30); POTASSIUM 3.7 MMOL/L (3.5-5.1); SODIUM 139 MMOL/L (136-145)
--- NOTE | 2017-03-21 00:15 | Consultation ---
DATE OF CONSULTATION: 03/20/2017 INFECTIOUS DISEASE CONSULTATION CONSULTING PHYSICIAN: Jeimy William M.D. ATTENDING PHYSICIAN: Carlos Lu M.D. REFERRING PHYSICIAN: Gogo Hubbard M.D. I was asked by Dr. Bowens to see this patient. REASON FOR CONSULTATION: Sepsis and pneumonia. HISTORY OF PRESENT ILLNESS: This is an 86-year-old male, who comes in to [facility] with congestion and shortness of breath. He was noted to be septic. The patient had fevers and elevated white count over 12, was 12.1. The patient's temperature was as high as 100.2. The patient had elevated respiratory rate and elevated heart rate as high as 102 to 105. The patient has SIRS criteria, likely septic. Initial chest x-ray was negative, however, the patient is congested and short of breath. The patient certainly has upper respiratory infection, bronchitis, and respiratory infection. Influenza screen is negative. Infectious Disease consultation is requested. The patient is currently on vancomycin and Zosyn. MAR was noted. Orders were noted. Notes were reviewed and records were reviewed. REVIEW OF SYSTEMS: CONSTITUTIONAL: Denies weakness or fatigue. He has a Muñoz. No central line. He is responsive. HEAD AND NECK: No head pain, neck pain, or neck stiffness. CARDIAC: No chest pain. GASTROINTESTINAL: No nausea, vomiting, or diarrhea. GENITOURINARY: He has a Muñoz. PULMONARY: He is congested and short of breath with sputum. SKIN: No rash. NEUROLOGIC: No seizures. He has generalized weakness and fatigue. No mention of night sweats or weight loss. He did have fevers, but no chills at this time. No rash or itching. No seizure activity. PAST MEDICAL HISTORY: The patient's past medical history includes the following: The patient has past medical history of Alzheimer's disease, dementia, history of atrial fibrillation, history of hypertension, GERD, BPH, history of shortness of breath, altered mental status, history of encephalopathy, elevated troponin, acute kidney injury, anemia, and chronic atrial fibrillation. ALLERGIES: No known drug allergies. No antibiotic allergies. FAMILY HISTORY: Noncontributory. Negative for exposure to tuberculosis or cancer. SOCIAL HISTORY: Negative for smoking, alcohol, or drug abuse. MEDICATIONS: Upon reviewing the MAR, he is on following medications: He is currently on Zosyn and vancomycin. He is on acetaminophen. He is on aspirin. He is on bisacodyl. He is on docusate. He is on DuoNeb. He is on metoprolol and multivitamins. He is on Zofran and paroxetine. He is on polyethylene. He is on Xarelto. He is on , and Flomax. Antibiotics, vancomycin and Zosyn. PHYSICAL EXAMINATION: VITAL SIGNS: Temperature maximum 100.2, pulse rate as high as 105, respiratory rate as high as 25. Currently, temperature is 98.4, pulse rate 92, respiratory rate 18, blood pressure 129/66, and saturation 96% on room air. GENERAL: Alert, responsive, no acute distress. HEAD AND NECK: Oral exam, no thrush. Eye exam, no icterus. Normocephalic. No facial droop. No neck stiffness. Neck is supple. HEART: Regular. No gallop or murmur. ABDOMEN: Soft. Positive bowel sounds. Nontender. LUNGS: Few bilateral rhonchi. Possible rales at the bases. SKIN: No rash. MUSCULOSKELETAL: No effusion. Legs are without cellulitis. PERIPHERAL VASCULAR: No cyanosis or gangrene. RECTAL: Deferred. GENITOURINARY: He has a Muñoz. Urine is slightly cloudy. LINES: Line sites without phlebitis. NEUROLOGIC: Generalized weakness and responsive. LABORATORY AND DIAGNOSTIC DATA: Laboratory data is as follows. White count on admission 12.1, now white count is 9.0, hemoglobin 12.2. The patient's creatinine is 1.3. UA with leukocyte esterase negative. Cultures are pending. Influenza screen is negative. His chest x-ray initially was negative. ASSESSMENT AND PLAN: 1. The patient has sepsis, systemic inflammatory response syndrome criteria, fevers, leukocytosis, elevated respiratory rate and heart rate. The patient has upper respiratory tract infection, bronchitis. Rule out community-acquired pneumonia versus aspiration and healthcare-acquired pneumonia. Continue vancomycin and Zosyn. Check cultures, labs, and followup chest x-ray. Continue pulmonary treatment. Once we have the cultures back, we can tailor the antibiotics towards the underlying infection. 2. Alzheimer's. 3. Dementia. 4. Atrial fibrillation. 5. Hypertension. 6. Gastroesophageal reflux disease. 7. Benign prostatic hyperplasia. 8. Anemia. 9. Altered mental status. 10. Encephalopathy. 11. Acute kidney injury. 12. Chronic atrial fibrillation. 13. Alzheimer's dementia and aspiration risk. 14. Past medical history noted. 15. No allergies. 16. Social history of negative. 17. Family history is noncontributory. 18. MAR was noted. 19. Case was discussed with RN. 20. Continue treatment per primary consultants. 21. Skin care protocol. 22. Notes and records were noted. 23. Orders were noted. Jeimy William M.D. DR: KAREN JOB#: [id number] CC:
[2017-03-21 00:30] VITALS: BP 111/60
[2017-03-21] MEDS: Albuterol/Ipratropium 3ml neb HHN SCH ×4 (01:28→19:37)
[2017-03-21 04:24] VITALS: BP 138/81
[2017-03-21] MEDS: Zoysn 3.37gm in NS 100ML IVPB SCH ×3 (05:44→21:34)
[2017-03-21 08:00] VITALS: BP 128/63
[2017-03-21] MEDS: Multivitamin w/Minerals tab ORAL SCH (09:17)
[2017-03-21] MEDS: Metoprolol 25mg tab ORAL SCH ×2 (09:17→21:35)
[2017-03-21] MEDS: Docusate 100mg cap ORAL SCH ×2 (09:17→21:00)
[2017-03-21] MEDS: Vancomycin 1gm/D5W 275ml IVPB SCH ×2 (09:17)
[2017-03-21] MEDS: Aspirin EC 81mg tab ORAL SCH (09:18)
[2017-03-21] MEDS: PARoxetine 10mg tab ORAL SCH (09:18)
[2017-03-21] MEDS: guaiFENesin ER 600mg tab ORAL SCH ×2 (09:19→17:17)
[2017-03-21 12:00] VITALS: BP 145/76
--- NOTE | 2017-03-21 13:19 | Cardiac Electrophysiology PN ---
Assessment/Plan Assessment/Plan 1. Troponin elevation. No chest pain. Ruled out for AK. EF 55%. On aspirin, Lopressor, and Lipitor. 2. Chronic atrial fibrillation. The patient is on Xarelto 15 mg daily. On Lopressor 25 mg twice a day. 3. Fever and sepsis. On Abx per ID 4. Hypertension. On Lopressor 25 bid. 5. Dementia. 6. Altered mental status likely due to sepsis. ADRIANA RN Subjective Subjective No events . In atrial fib with controlled rate. Objective Last 24 Hour Vital Signs Date Time Temp Pulse Resp B/P (MAP) Pulse Ox O2 Delivery O2 Flow Rate FiO2 03/21/17 13:13 86 18 98 21 03/21/17 13:01 87 18 95 Room Air 21 03/21/17 09:17 100 128/63 03/21/17 08:00 96.7 100 19 128/63 100 Room Air 03/21/17 07:45 76 20 97 Room Air 21 03/21/17 07:37 74 20 93 Room Air 21 03/21/17 04:24 97.5 92 20 138/81 96 Room Air 03/21/17 04:00 93 03/21/17 01:38 89 20 99 Room Air 21 03/21/17 01:28 84 18 94 Room Air 03/21/17 00:30 97.6 74 18 111/60 96 Room Air 03/21/17 00:00 79 03/20/17 20:55 92 129/66 03/20/17 20:48 98.4 92 18 129/66 96 Room Air 03/20/17 20:00 92 20 98 Room Air 21 03/20/17 20:00 92 03/20/17 19:50 89 20 94 Room Air 03/20/17 16:00 86 03/20/17 16:00 97.0 80 18 125/62 97 Intake and Output 03/20/17 03/21/17 19:00 07:00 Intake Total 1350.500 ml 860.0 ml Output Total 900 ml 400 ml Balance 450.500 ml 460.0 ml Intake Oral 236 ml 120 ml IV Total 1114.500 ml 740.0 ml Output Urine Total 900 ml 400 ml # Bowel Movements 1 Laboratory Tests Test 03/20/17 22:30 White Blood Count 7.2 K/UL (4.8-10.8) Red Blood Count 3.55 M/UL (4.70-6.10) L Hemoglobin 11.1 G/DL (14.2-18.0) L Hematocrit 34.9 % (42.0-52.0) L Mean Corpuscular Volume 98 FL (80-99) Mean Corpuscular Hemoglobin 31.3 PG (27.0-31.0) H Mean Corpuscular Hemoglobin Concent 31.8 G/DL (32.0-36.0) L Red Cell Distribution Width 12.7 % (11.6-14.8) Platelet Count 192 K/UL (150-450) Mean Platelet Volume 6.4 FL (6.5-10.1) L Neutrophils (%) (Auto) 77.0 % (45.0-75.0) H Lymphocytes (%) (Auto) 13.6 % (20.0-45.0) L Monocytes (%) (Auto) 8.5 % (1.0-10.0) Eosinophils (%) (Auto) 0.3 % (0.0-3.0) Basophils (%) (Auto) 0.7 % (0.0-2.0) Sodium Level 139 MMOL/L (136-145) Potassium Level 3.7 MMOL/L (3.5-5.1) Chloride Level 106 MMOL/L (98-107) Carbon Dioxide Level 28 MMOL/L (21-32) Anion Gap 5 mmol/L (5-15) Blood Urea Nitrogen 27 mg/dL (7-18) H Creatinine 1.3 MG/DL (0.55-1.30) Estimat Glomerular Filtration Rate mL/min (>60) Glucose Level 102 MG/DL (74-106) Calcium Level 8.6 MG/DL (8.5-10.1) Microbiology Date/Time Source Procedure Growth Status 03/19/17 06:40 Blood Blood Culture - Preliminary NO GROWTH AFTER 24 HOURS Resulted 03/19/17 06:40 Blood Blood Culture - Preliminary NO GROWTH AFTER 24 HOURS Resulted 03/19/17 06:55 Nasal Nares Influenza Types A,B Antigen ([facility]) - Final Complete 03/19/17 06:42 Nasal Nares MRSA Culture - Final Staphylococcus Aureus - Mrsa Complete 03/19/17 06:42 Rectum VRE Culture - Final NO VANCOMYCIN RESISTANT ENTEROCOCCUS ... Complete Objective HEAD AND NECK: No JVD. LUNGS: Clear. CARDIOVASCULAR: Regular S1 and S2 with no gallop or murmur. ABDOMEN: Soft. EXTREMITIES: No pitting edema. DOROTHY ARMSTRONG Mar 21, 2017 13:19
[2017-03-21 16:00] VITALS: BP 128/71
[2017-03-21] MEDS: Xarelto 15mg tab ORAL SCH (17:18)
--- NOTE | 2017-03-21 17:55 | General Progress Note ---
Assessment/Plan Problem List: (1) Sepsis ICD Codes: A41.9 - Sepsis, unspecified organism SNOMED: 33586396 (2) HCAP (healthcare-associated pneumonia) ICD Codes: J18.9 - Pneumonia, unspecified organism SNOMED: 648167602 (3) RODOLFO (acute kidney injury) ICD Codes: N17.9 - Acute kidney failure, unspecified SNOMED: 62729979 (4) Acute toxic metabolic encephalopathy (5) Elevated troponin Assessment & Plan: likely NSTEMI type 2 in setting of sepsis ICD Codes: R74.8 - Abnormal levels of other serum enzymes SNOMED: 825779968, 364401319, 887468986 (6) Chronic a-fib ICD Codes: I48.2 - Chronic atrial fibrillation SNOMED: 721430803 (7) GERD (gastroesophageal reflux disease) ICD Codes: K21.9 - Gastro-esophageal reflux disease without esophagitis SNOMED: 006737109 (8) HTN (hypertension) ICD Codes: I10 - Essential (primary) hypertension SNOMED: 14687175 (9) BPH (benign prostatic hyperplasia) ICD Codes: N40.0 - Benign prostatic hyperplasia without lower urinary tract symptoms SNOMED: 430137420 (10) Alzheimer's dementia ICD Codes: G30.9 - Alzheimer's disease, unspecified; F02.80 - Dementia in other diseases classified elsewhere without behavioral disturbance SNOMED: 71243414 Status: stable Assessment/Plan Pulm consulted ID consulted Empiric vanco and zosyn (03/19-) F/u cultures Duonebs ATC and PRN Guaifenesin Puree necktar thick diet per OYSTER WASHER F/u video swallow study IVFs given RODOLFO Hold ARB given RODOLFO Trend BMP Cardiology consult given elevated trop Trop now downtrending, peaked at 0.07 Check TTE--EF 55% ASA 81mg daily Cont SNF meds Pain control, bowel regimen Supportive care DVT Prophylaxis: SCD, xarelto Code Status: Full Hospital Classification Declaration: Based on this initial evaluation, and depending on the patient's clinical course, I anticipate that this patient will require hospitalization for 1-2 days for sepsis, PNA, and close respiratory/ hemodynamic monitoring. Disposition: Once the patient is stable to leave the hospital, I anticipate the patient will likely be discharged to the following environment: back to SNF Discussed with patient/family, nursing staff, SW/CM, pulmonology, ID, cardiology regarding clinical status, treatment course, and disposition planning. D/w ID re abx. D/w OYSTER WASHER re diet, video swallow study. Time of note may not reflect time of encounter. Subjective Date patient seen: Mar 21, 2017 Time patient seen: 14:50 Allergies: Coded Allergies: No Known Allergies (Unverified , 03/19/17) Subjective No acute o/n events WBC downtrending Seen by OYSTER WASHER who recommends puree, necktar thick liquid diet. Video swallow study pending Pt more awake, alert Pt cont w/ cough, congestion, slightly improved. SOB improving ROS limited 2/2 dementia Objective Last 24 Hour Vital Signs Date Time Temp Pulse Resp B/P (MAP) Pulse Ox O2 Delivery O2 Flow Rate FiO2 03/21/17 16:00 97.6 83 19 128/71 99 Room Air 03/21/17 13:13 86 18 98 21 03/21/17 13:01 87 18 95 Room Air 21 03/21/17 12:00 97.1 104 18 145/76 97 Room Air 97 03/21/17 12:00 85 03/21/17 09:17 100 128/63 03/21/17 08:00 100 03/21/17 08:00 96.7 100 19 128/63 100 Room Air 03/21/17 07:45 76 20 97 Room Air 21 03/21/17 07:37 74 20 93 Room Air 21 03/21/17 04:24 97.5 92 20 138/81 96 Room Air 03/21/17 04:00 93 03/21/17 01:38 89 20 99 Room Air 21 03/21/17 01:28 84 18 94 Room Air 03/21/17 00:30 97.6 74 18 111/60 96 Room Air 03/21/17 00:00 79 03/20/17 20:55 92 129/66 03/20/17 20:48 98.4 92 18 129/66 96 Room Air 03/20/17 20:00 92 20 98 Room Air 21 03/20/17 20:00 92 03/20/17 19:50 89 20 94 Room Air Intake and Output 03/20/17 03/21/17 19:00 07:00 Intake Total 1350.500 ml 860.0 ml Output Total 900 ml 400 ml Balance 450.500 ml 460.0 ml Intake Oral 236 ml 120 ml IV Total 1114.500 ml 740.0 ml Output Urine Total 900 ml 400 ml # Bowel Movements 1 Laboratory Tests 03/20/17 22:30: White Blood Count 7.2, Red Blood Count 3.55L, Hemoglobin 11.1L, Hematocrit 34.9L , Mean Corpuscular Volume 98, Mean Corpuscular Hemoglobin 31.3H, Mean Corpuscular Hemoglobin Concent 31.8L, Red Cell Distribution Width 12.7, Platelet Count 192, Mean Platelet Volume 6.4L, Neutrophils (%) (Auto) 77.0H, Lymphocytes (%) (Auto) 13.6L, Monocytes (%) (Auto) 8.5, Eosinophils (%) (Auto) 0.3, Basophils (%) (Auto) 0.7, Sodium Level 139, Potassium Level 3.7, Chloride Level 106, Carbon Dioxide Level 28, Anion Gap 5, Blood Urea Nitrogen 27H, Creatinine 1.3, Estimat Glomerular Filtration Rate , Glucose Level 102, Calcium Level 8.6 Height (Feet): 6 Weight (Pounds): 175 Objective General: alert, cooperative, no distress, appears stated age, A&Ox1 (baseline) Head: normocephalic, without obvious abnormality, atraumatic Eyes: conjunctivae/corneas clear. PERRL, EOM's intact Throat: lips, mucosa, and tongue normal. MMM Neck: supple, symmetrical, trachea midline, and no JVD Lungs: +rhonchi b/l Heart: regular rate and rhythm, S1, S2 normal, no murmur, click, rub or gallop Abdomen: soft, non-tender, non-distended, bowel sounds normal Extremities: extremities normal, atraumatic, no cyanosis or edema Pulses: 2+ and symmetric Skin: skin color, texture, turgor normal; no rashes or lesions Neurologic: grossly normal, no focal deficits Gogo Hubbard M.D. Mar 21, 2017 17:55
[2017-03-21 20:00] VITALS: BP 118/69
[2017-03-21] MEDS: Tamsulosin 0.4mg cap ORAL SCH (21:34)
[2017-03-22] VITALS: BP_SYST 117; BP_SYST 118; BP_DIAS 65; BP_DIAS 69
[2017-03-22] MEDS: Albuterol/Ipratropium 3ml neb HHN SCH ×4 (01:29→19:24)
[2017-03-22 04:00] VITALS: BP 145/90
[2017-03-22] MEDS: Zoysn 3.37gm in NS 100ML IVPB SCH ×3 (05:44→22:45)
[2017-03-22 07:46] LABS: BASOPHILS % (AUTO) 1.3 % (0.0-2.0); EOSINOPHILS % (AUTO) 0.5 % (0.0-3.0); HEMATOCRIT 36.8 % (42.0-52.0); HEMOGLOBIN 12.5 G/DL (14.2-18.0); LYMPHOCYTES % (AUTO) 25.7 % (20.0-45.0); MEAN CORPUSCULAR VOLUME 98 FL (80-99); MONOCYTES % (AUTO) 10.2 % (1.0-10.0); NEUTROPHILS % (AUTO) 62.3 % (45.0-75.0); PLATELET COUNT 209 K/UL (150-450); RED BLOOD COUNT 3.76 M/UL (4.70-6.10); RED CELL DISTRIBUTION WIDTH 12.5 % (11.6-14.8); WHITE BLOOD COUNT 5.4 K/UL (4.8-10.8)
[2017-03-22 08:00] VITALS: BP 155/89
[2017-03-22 08:12] LABS: ANION GAP 8 mmol/L (5-15); BLOOD UREA NITROGEN 18 mg/dL (7-18); CARBON DIOXIDE 26 MMOL/L (21-32); CHLORIDE 106 MMOL/L (98-107); CREATININE 1.1 MG/DL (0.55-1.30); POTASSIUM 4.3 MMOL/L (3.5-5.1); SODIUM 140 MMOL/L (136-145)
[2017-03-22] MEDS: Vancomycin 1gm/D5W 275ml IVPB SCH ×2 (09:27)
[2017-03-22] MEDS: PARoxetine 10mg tab ORAL SCH (09:27)
[2017-03-22] MEDS: Metoprolol 25mg tab ORAL SCH ×2 (09:27→20:21)
[2017-03-22] MEDS: Multivitamin w/Minerals tab ORAL SCH (09:27)
[2017-03-22] MEDS: Aspirin EC 81mg tab ORAL SCH (09:28)
[2017-03-22] MEDS: guaiFENesin ER 600mg tab ORAL SCH ×2 (09:28→17:26)
[2017-03-22] MEDS: Docusate 100mg cap ORAL SCH ×2 (09:28→20:21)
[2017-03-22 12:00] VITALS: BP 109/74
--- NOTE | 2017-03-22 12:07 | Internal Med Progress Note ---
Subjective Physician Name HenryRhianna hess Attending Physician Carlos Lu Current Medications Medications (Trade) Dose Ordered Sig/Jeny Route PRN Reason Start Time Stop Time Status Last Admin Dose Admin Acetaminophen (Tylenol) 650 mg Q4H PRN ORAL Mild Pain (Pain Scale 1-3) 03/19/17 10:00 04/18/17 09:59 Acetaminophen (Tylenol) 650 mg Q4H PRN ORAL fever 03/19/17 10:00 04/18/17 09:59 Acetaminophen (Tylenol) 650 mg Q4H PRN RECTAL Mild Pain (Pain Scale 1-3) 03/19/17 09:00 04/18/17 08:59 Albuterol/ Ipratropium (Albuterol/ Ipratropium) 3 ml Q4H PRN HHN Shortness of Breath 03/19/17 14:00 03/24/17 13:59 Albuterol/ Ipratropium (Albuterol/ Ipratropium) 3 ml Q6HRT HHN 03/19/17 14:30 03/24/17 14:29 03/22/17 01:29 Aspirin (Ecotrin) 81 mg DAILY ORAL 03/20/17 09:00 04/19/17 08:59 03/22/17 09:28 Bisacodyl (Dulcolax) 10 mg HSPRN PRN RECTAL Constipation 1st Line Agent 03/19/17 09:00 04/18/17 08:59 Dextrose (Dextrose 50%) STAT PRN IV Hypoglycemia 03/19/17 10:00 04/18/17 09:59 Docusate Sodium (Colace) 100 mg EVERY 12 HOURS ORAL 03/19/17 21:00 04/18/17 20:59 03/22/17 09:28 Guaifenesin (Mucinex ER) 600 mg TWICE A DAY ORAL 03/19/17 18:00 04/18/17 17:59 03/22/17 09:28 Metoprolol Tartrate (Lopressor) 25 mg Q12HR ORAL 03/19/17 21:00 04/18/17 20:59 03/22/17 09:27 Multivitamins Therapeutic (Therapeutic Multivitamin) 1 ea DAILY ORAL 03/19/17 09:00 04/18/17 08:59 03/22/17 09:27 Ondansetron HCl (Zofran) 4 mg Q6H PRN IVP Nausea & Vomiting 03/19/17 10:00 04/18/17 09:59 Paroxetine HCl (Paxil) 5 mg DAILY ORAL 03/19/17 09:00 04/18/17 08:59 03/22/17 09:27 Piperacillin Sod/ Tazobactam Sod 3.375 gm/Sodium Chloride 110 ml @ 27.5 mls/hr EVERY 8 HOURS IVPB 03/21/17 06:00 03/28/17 05:59 03/22/17 05:44 Polyethylene Glycol (Miralax) 17 gm HSPRN PRN ORAL Constipation 2nd Line Agent 03/19/17 10:00 04/18/17 09:59 Rivaroxaban (Xarelto) 15 mg QPM ORAL 03/19/17 16:30 04/18/17 16:29 03/21/17 17:18 Sodium Chloride 1,000 ml @ 75 mls/hr [id number] IV 03/19/17 15:00 04/18/17 14:59 03/22/17 09:28 Tamsulosin HCl (Flomax) 0.4 mg BEDTIME ORAL 03/19/17 21:00 04/18/17 20:59 03/21/17 21:34 Vancomycin HCl (Vanco rx to dose) 1 ea DAILY PRN MISC Per rx protocol 03/19/17 09:00 04/18/17 08:59 Vancomycin/Sodium Chloride 250 ml @ 166.667 mls/hr Q12H IVPB 03/22/17 20:00 03/27/17 19:59 Allergies: Coded Allergies: No Known Allergies (Unverified , 03/19/17) Objective Last Vital Signs Date Time Temp Pulse Resp B/P (MAP) Pulse Ox O2 Delivery O2 Flow Rate FiO2 03/22/17 09:27 77 155/89 03/22/17 08:00 96.9 20 97 Room Air 03/22/17 01:36 21 03/19/17 16:00 4.0 Laboratory Tests Test 03/22/17 07:10 White Blood Count 5.4 K/UL (4.8-10.8) Red Blood Count 3.76 M/UL (4.70-6.10) L Hemoglobin 12.5 G/DL (14.2-18.0) L Hematocrit 36.8 % (42.0-52.0) L Mean Corpuscular Volume 98 FL (80-99) Mean Corpuscular Hemoglobin 33.3 PG (27.0-31.0) H Mean Corpuscular Hemoglobin Concent 34.0 G/DL (32.0-36.0) Red Cell Distribution Width 12.5 % (11.6-14.8) Platelet Count 209 K/UL (150-450) Mean Platelet Volume 7.4 FL (6.5-10.1) Neutrophils (%) (Auto) 62.3 % (45.0-75.0) Lymphocytes (%) (Auto) 25.7 % (20.0-45.0) Monocytes (%) (Auto) 10.2 % (1.0-10.0) H Eosinophils (%) (Auto) 0.5 % (0.0-3.0) Basophils (%) (Auto) 1.3 % (0.0-2.0) Sodium Level 140 MMOL/L (136-145) Potassium Level 4.3 MMOL/L (3.5-5.1) Chloride Level 106 MMOL/L (98-107) Carbon Dioxide Level 26 MMOL/L (21-32) Anion Gap 8 mmol/L (5-15) Blood Urea Nitrogen 18 mg/dL (7-18) Creatinine 1.1 MG/DL (0.55-1.30) Estimat Glomerular Filtration Rate mL/min (>60) Glucose Level 87 MG/DL (74-106) Calcium Level 9.0 MG/DL (8.5-10.1) Vancomycin Level Trough 7.1 ug/mL (5.0-12.0) Intake and Output 03/21/17 03/22/17 19:00 07:00 Intake Total 356 ml Output Total 100 ml 575 ml Balance 256 ml -575 ml Intake Oral 356 ml Output Urine Total 100 ml 575 ml Assessment/Plan Assessment/Plan Problem List: (1) Sepsis ICD Codes: A41.9 - Sepsis, unspecified organism SNOMED: 52892317 (2) HCAP (healthcare-associated pneumonia) ICD Codes: J18.9 - Pneumonia, unspecified organism SNOMED: 317671442 (3) RODOLFO (acute kidney injury) ICD Codes: N17.9 - Acute kidney failure, unspecified SNOMED: 49215031 (4) Acute toxic metabolic encephalopathy (5) Elevated troponin Assessment & Plan: likely NSTEMI type 2 in setting of sepsis ICD Codes: R74.8 - Abnormal levels of other serum enzymes SNOMED: 624103378, 254874060, 851609692 (6) Chronic a-fib ICD Codes: I48.2 - Chronic atrial fibrillation SNOMED: 427309544 (7) GERD (gastroesophageal reflux disease) ICD Codes: K21.9 - Gastro-esophageal reflux disease without esophagitis SNOMED: 571674869 (8) HTN (hypertension) ICD Codes: I10 - Essential (primary) hypertension SNOMED: 79859507 (9) BPH (benign prostatic hyperplasia) ICD Codes: N40.0 - Benign prostatic hyperplasia without lower urinary tract symptoms SNOMED: 275572654 (10) Alzheimer's dementia ICD Codes: G30.9 - Alzheimer's disease, unspecified; F02.80 - Dementia in other diseases classified elsewhere without behavioral disturbance SNOMED: 30696018 Status: stable Assessment/Plan Admit tele Pulm consulted ID consulted Empiric vanco and zosyn (03/19-) F/u cultures Duonebs ATC and PRN Guaifenesin NPO pending swallow eval IVFs given RODOLFO Hold ARB given RODOLFO Trend BMP Cardiology consult given elevated trop Trend trop/EKG Check TTE ASA 81mg daily Cont SNF meds Pain control, bowel regimen Supportive care DVT Prophylaxis: SCD, xarelto Code Status: Full Hospital Classification Declaration: Based on this initial evaluation, and depending on the patient's clinical course, I anticipate that this patient will require hospitalization for 2-3 days for sepsis, PNA, and close respiratory/ hemodynamic monitoring. Disposition: Once the patient is stable to leave the hospital, I anticipate the patient will likely be discharged to the following environment: back to SNF I spent 72 minutes on this patient's case, and 40 minutes were dedicated to counseling and/or care coordination. Discussed with patient/family, nursing staff, SW/CM, pulmonology, ID, cardiology regarding clinical status, treatment course, and disposition planning. Rhianna Palacios M.D. Mar 22, 2017 12:07
[2017-03-22 16:00] VITALS: BP 136/82
--- NOTE | 2017-03-22 16:26 | Cardiac Electrophysiology PN ---
Assessment/Plan Assessment/Plan 1. Troponin elevation. No chest pain or HI. EF 55%. On aspirin, Lopressor, and Lipitor. 2. Chronic atrial fibrillation. The patient is on Xarelto 15 mg daily and Lopressor 25 mg twice a day. 3. Fever and sepsis. On Abx per ID 4. Hypertension. On Lopressor 25 bid. 5. Dementia. 6. Altered mental status likely due to sepsis. 7. Dysphagia: Swallow eval pending DW RN Subjective Subjective No events. In atrial fib with controlled rate and occasional PVCs. Swallow eval pending. Objective Last 24 Hour Vital Signs Date Time Temp Pulse Resp B/P (MAP) Pulse Ox O2 Delivery O2 Flow Rate FiO2 03/22/17 16:00 97.9 82 20 136/82 98 Room Air 03/22/17 13:39 87 20 96 Room Air 03/22/17 13:38 21 03/22/17 13:13 73 20 95 Room Air 21 03/22/17 12:00 76 03/22/17 12:00 97.3 76 20 109/74 93 Room Air 03/22/17 09:27 77 155/89 03/22/17 08:00 96.9 77 20 155/89 97 Room Air 03/22/17 08:00 86 03/22/17 07:00 Room Air 03/22/17 07:00 21 03/22/17 07:00 Room Air 03/22/17 04:00 96.8 76 20 145/90 Room Air 03/22/17 04:00 95 03/22/17 01:36 84 20 94 Room Air 03/22/17 01:28 84 20 94 Room Air 03/22/17 01:28 21 03/22/17 00:00 84 03/22/17 00:00 97.5 84 20 117/65 97 Room Air 03/21/17 21:35 89 118/69 03/21/17 20:00 97.5 89 20 118/69 94 Room Air 03/21/17 20:00 93 03/21/17 19:57 74 19 97 Room Air 21 03/21/17 19:36 21 03/21/17 19:35 74 19 97 Room Air 21 Intake and Output 03/21/17 03/22/17 19:00 07:00 Intake Total 356 ml Output Total 100 ml 575 ml Balance 256 ml -575 ml Intake Oral 356 ml Output Urine Total 100 ml 575 ml Laboratory Tests Test 03/22/17 07:10 White Blood Count 5.4 K/UL (4.8-10.8) Red Blood Count 3.76 M/UL (4.70-6.10) L Hemoglobin 12.5 G/DL (14.2-18.0) L Hematocrit 36.8 % (42.0-52.0) L Mean Corpuscular Volume 98 FL (80-99) Mean Corpuscular Hemoglobin 33.3 PG (27.0-31.0) H Mean Corpuscular Hemoglobin Concent 34.0 G/DL (32.0-36.0) Red Cell Distribution Width 12.5 % (11.6-14.8) Platelet Count 209 K/UL (150-450) Mean Platelet Volume 7.4 FL (6.5-10.1) Neutrophils (%) (Auto) 62.3 % (45.0-75.0) Lymphocytes (%) (Auto) 25.7 % (20.0-45.0) Monocytes (%) (Auto) 10.2 % (1.0-10.0) H Eosinophils (%) (Auto) 0.5 % (0.0-3.0) Basophils (%) (Auto) 1.3 % (0.0-2.0) Sodium Level 140 MMOL/L (136-145) Potassium Level 4.3 MMOL/L (3.5-5.1) Chloride Level 106 MMOL/L (98-107) Carbon Dioxide Level 26 MMOL/L (21-32) Anion Gap 8 mmol/L (5-15) Blood Urea Nitrogen 18 mg/dL (7-18) Creatinine 1.1 MG/DL (0.55-1.30) Estimat Glomerular Filtration Rate mL/min (>60) Glucose Level 87 MG/DL (74-106) Calcium Level 9.0 MG/DL (8.5-10.1) Vancomycin Level Trough 7.1 ug/mL (5.0-12.0) Objective HEAD AND NECK: No JVD. LUNGS: Clear. CARDIOVASCULAR: Regular S1 and S2 with no gallop or murmur. ABDOMEN: Soft. EXTREMITIES: No pitting edema. DOROTHY ARMSTRONG Mar 22, 2017 16:26
--- NOTE | 2017-03-22 17:16 | Infectious Diseases Prog Note ---
Assessment/Plan Assessment/Plan ASSESSMENT AND PLAN: 1. sepsis, uri/bronchitis, ? pna, ? viral syndrome, influenza negative, leukocytosis, fevers, sirs - vancomycin and zosyn - check f/u chest x-ray - check labs and final cultures - adjust abx pending above w/u - clinically better, leukocytosis and fevers resolved 2. Alzheimer's. 3. Dementia. 4. Atrial fibrillation. 5. Hypertension. 6. Gastroesophageal reflux disease. 7. Benign prostatic hyperplasia. 8. Anemia. 9. Altered mental status. 10. Encephalopathy. 11. Acute kidney injury. 12. Chronic atrial fibrillation. 13. Alzheimer's dementia and aspiration risk. 14. Past medical history noted. 15. No allergies. 16. Social history of negative. 17. Family history is noncontributory. 18. MAR was noted. 19. Case was discussed with RN. 20. Continue treatment per primary consultants. 21. Skin care protocol. 22. Notes and records were noted. 23. Orders were noted. 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 Subjective Constitutional: Reports: fatigue, Denies: fever HEENT: Denies: congestion Respiratory: Denies: shortness of breath Cardiovascular: Denies: chest pain Gastrointestinal/Abdominal: Denies: nausea, vomiting, diarrhea Genitourinary: Reports: other - + aguirre, Denies: dysuria Neurologic: Reports: weakness Psychiatric: Denies: depression Skin: Denies: rash Hematologic: Denies: bleeding Musculoskeletal: Denies: pain Allergies: Coded Allergies: No Known Allergies (Unverified , 03/19/17) Objective Vital Signs Last 24 Hour Vital Signs Date Time Temp Pulse Resp B/P (MAP) Pulse Ox O2 Delivery O2 Flow Rate FiO2 03/22/17 16:00 97.9 82 20 136/82 98 Room Air 03/22/17 13:39 87 20 96 Room Air 21 03/22/17 13:38 21 03/22/17 13:13 73 20 95 Room Air 21 03/22/17 12:00 76 03/22/17 12:00 97.3 76 20 109/74 93 Room Air 03/22/17 09:27 77 155/89 03/22/17 08:00 96.9 77 20 155/89 97 Room Air 03/22/17 08:00 86 03/22/17 07:00 Room Air 03/22/17 07:00 21 03/22/17 07:00 Room Air 03/22/17 04:00 96.8 76 20 145/90 Room Air 03/22/17 04:00 95 03/22/17 01:36 84 20 94 Room Air 21 03/22/17 01:28 84 20 94 Room Air 21 03/22/17 01:28 21 03/22/17 00:00 84 03/22/17 00:00 97.5 84 20 117/65 97 Room Air 03/21/17 21:35 89 118/69 03/21/17 20:00 97.5 89 20 118/69 94 Room Air 03/21/17 20:00 93 03/21/17 19:57 74 19 97 Room Air 21 03/21/17 19:36 21 03/21/17 19:35 74 19 97 Room Air 21 Height (Feet): 6 Weight (Pounds): 175 General Appearance: no acute distress HEENT: normocephalic, atraumatic, anicteric, mucous membranes moist, EOMI, supple, no JVD Respiratory/Chest: no respiratory distress, no accessory muscle use, crackles/ rales - no sig rales, rhonchi - bilaterally Cardiovascular: normal rate, regular rhythm, no gallop/murmur, no JVD Abdomen: normal bowel sounds, soft, non tender, no organomegaly Genitourinary: other - + aguirre - urine clear Extremities: no cyanosis Skin: no rash Neurologic/Psychiatric: oracle obiee developer II-XII grossly normal, alert, responsive Lymphatic: no neck adenopathy Musculoskeletal: no effusion Objective 03/20 - chest x-ray - Findings: No definite infiltrate or pulmonary vascular congestion identified. The heart is enlarged. The aorta is mildly enlarged consistent with atherosclerotic vascular disease. The bones are osteopenic. Impression: No acute disease Microbiology Date/Time Source Procedure Growth Status 03/19/17 06:40 Blood Blood Culture - Preliminary NO GROWTH AFTER 72 HOURS Resulted 03/19/17 06:55 Nasal Nares Influenza Types A,B Antigen ([facility]) - Final Complete 03/19/17 06:42 Rectum VRE Culture - Final NO VANCOMYCIN RESISTANT ENTEROCOCCUS ... Complete Laboratory Tests Test 03/22/17 07:10 White Blood Count 5.4 K/UL (4.8-10.8) Red Blood Count 3.76 M/UL (4.70-6.10) L Hemoglobin 12.5 G/DL (14.2-18.0) L Hematocrit 36.8 % (42.0-52.0) L Mean Corpuscular Volume 98 FL (80-99) Mean Corpuscular Hemoglobin 33.3 PG (27.0-31.0) H Mean Corpuscular Hemoglobin Concent 34.0 G/DL (32.0-36.0) Red Cell Distribution Width 12.5 % (11.6-14.8) Platelet Count 209 K/UL (150-450) Mean Platelet Volume 7.4 FL (6.5-10.1) Neutrophils (%) (Auto) 62.3 % (45.0-75.0) Lymphocytes (%) (Auto) 25.7 % (20.0-45.0) Monocytes (%) (Auto) 10.2 % (1.0-10.0) H Eosinophils (%) (Auto) 0.5 % (0.0-3.0) Basophils (%) (Auto) 1.3 % (0.0-2.0) Sodium Level 140 MMOL/L (136-145) Potassium Level 4.3 MMOL/L (3.5-5.1) Chloride Level 106 MMOL/L (98-107) Carbon Dioxide Level 26 MMOL/L (21-32) Anion Gap 8 mmol/L (5-15) Blood Urea Nitrogen 18 mg/dL (7-18) Creatinine 1.1 MG/DL (0.55-1.30) Estimat Glomerular Filtration Rate mL/min (>60) Glucose Level 87 MG/DL (74-106) Calcium Level 9.0 MG/DL (8.5-10.1) Vancomycin Level Trough 7.1 ug/mL (5.0-12.0) Current Medications Medications (Trade) Dose Ordered Sig/Jeny Route PRN Reason Start Time Stop Time Status Last Admin Dose Admin Acetaminophen (Tylenol) 650 mg Q4H PRN ORAL Mild Pain (Pain Scale 1-3) 03/19/17 10:00 2 09:59 Acetaminophen (Tylenol) 650 mg Q4H PRN ORAL fever 03/19/17 10:00 2 09:59 Acetaminophen (Tylenol) 650 mg Q4H PRN RECTAL Mild Pain (Pain Scale 1-3) 03/19/17 09:00 04/18/17 08:59 Albuterol/ Ipratropium (Albuterol/ Ipratropium) 3 ml Q4H PRN HHN Shortness of Breath 03/19/17 14:00 03/24/17 13:59 Albuterol/ Ipratropium (Albuterol/ Ipratropium) 3 ml Q6HRT HHN 03/19/17 14:30 03/24/17 14:29 03/22/17 13:12 Aspirin (Ecotrin) 81 mg DAILY ORAL 03/20/17 09:00 04/19/17 08:59 03/22/17 09:28 Bisacodyl (Dulcolax) 10 mg HSPRN PRN RECTAL Constipation 1st Line Agent 03/19/17 09:00 04/18/17 08:59 Dextrose (Dextrose 50%) STAT PRN IV Hypoglycemia 03/19/17 10:00 04/18/17 09:59 Docusate Sodium (Colace) 100 mg EVERY 12 HOURS ORAL 03/19/17 21:00 04/18/17 20:59 03/22/17 09:28 Guaifenesin (Mucinex ER) 600 mg TWICE A DAY ORAL 03/19/17 18:00 04/18/17 17:59 03/22/17 09:28 Metoprolol Tartrate (Lopressor) 25 mg Q12HR ORAL 03/19/17 21:00 04/18/17 20:59 03/22/17 09:27 Multivitamins Therapeutic (Therapeutic Multivitamin) 1 ea DAILY ORAL 03/19/17 09:00 04/18/17 08:59 03/22/17 09:27 Ondansetron HCl (Zofran) 4 mg Q6H PRN IVP Nausea & Vomiting 03/19/17 10:00 04/18/17 09:59 Paroxetine HCl (Paxil) 5 mg DAILY ORAL 03/19/17 09:00 04/18/17 08:59 03/22/17 09:27 Piperacillin Sod/ Tazobactam Sod 3.375 gm/Sodium Chloride 110 ml @ 27.5 mls/hr EVERY 8 HOURS IVPB 03/21/17 06:00 03/28/17 05:59 03/22/17 14:03 Polyethylene Glycol (Miralax) 17 gm HSPRN PRN ORAL Constipation 2nd Line Agent 03/19/17 10:00 04/18/17 09:59 Rivaroxaban (Xarelto) 15 mg QPM ORAL 03/19/17 16:30 04/18/17 16:29 03/21/17 17:18 Sodium Chloride 1,000 ml @ 75 mls/hr [id number] IV 03/19/17 15:00 04/18/17 14:59 03/22/17 09:28 Tamsulosin HCl (Flomax) 0.4 mg BEDTIME ORAL 03/19/17 21:00 04/18/17 20:59 03/21/17 21:34 Vancomycin HCl (Vanco rx to dose) 1 ea DAILY PRN MISC Per rx protocol 03/19/17 09:00 04/18/17 08:59 Vancomycin/Sodium Chloride 250 ml @ 166.667 mls/hr Q12H IVPB 03/22/17 20:00 03/27/17 19:59 LILLIE LOMELI Mar 22, 2017 17:16
[2017-03-22] MEDS: Xarelto 15mg tab ORAL SCH (17:26)
[2017-03-22] MEDS ORDERED: Tubing IV Secondary IV ONE (17:47)
[2017-03-22 20:00] VITALS: BP 142/77
[2017-03-22] MEDS: Tamsulosin 0.4mg cap ORAL SCH (20:21)
[2017-03-22] MEDS: Vancomycin 750mg/NS 250ml IVPB SCH (20:24)
[2017-03-23] VITALS: BP 129/89
[2017-03-23] MEDS: Albuterol/Ipratropium 3ml neb HHN SCH ×4 (01:08→19:29)
[2017-03-23 04:00] VITALS: BP 142/91
[2017-03-23 06:06] LABS: APPEARANCE,URINE CLOUDY; BILIRUBIN, URINE NEGATIVE (NEGATIVE); GLUCOSE, URINE (UA) NEGATIVE (NEGATIVE); KETONES,URINE NEGATIVE (NEGATIVE); LEUKOCYTE ESTERASE ,URINE NEGATIVE (NEGATIVE); NITRITE,URINE NEGATIVE (NEGATIVE); PH,URINE 6.5 (4.5-8.0); PROTEIN,URINE 3+ (NEGATIVE); UROBILINOGEN,URINE 1 MG/DL (0.0-1.0)
[2017-03-23 06:07] LABS: COLOR,URINE RED
[2017-03-23] MEDS: Zoysn 3.37gm in NS 100ML IVPB SCH ×3 (06:19→21:32)
[2017-03-23 07:37] LABS: BASOPHILS % (AUTO) 1.1 % (0.0-2.0); EOSINOPHILS % (AUTO) 1.2 % (0.0-3.0); HEMATOCRIT 37.1 % (42.0-52.0); HEMOGLOBIN 12.9 G/DL (14.2-18.0); LYMPHOCYTES % (AUTO) 29.8 % (20.0-45.0); MEAN CORPUSCULAR VOLUME 98 FL (80-99); MONOCYTES % (AUTO) 10.1 % (1.0-10.0); NEUTROPHILS % (AUTO) 57.7 % (45.0-75.0); PLATELET COUNT 186 K/UL (150-450); RED BLOOD COUNT 3.78 M/UL (4.70-6.10); RED CELL DISTRIBUTION WIDTH 12.3 % (11.6-14.8); WHITE BLOOD COUNT 5.1 K/UL (4.8-10.8)
[2017-03-23 08:00] VITALS: BP 151/87
[2017-03-23 08:11] LABS: ANION GAP 9 mmol/L (5-15); BLOOD UREA NITROGEN 15 mg/dL (7-18); CALCIUM 9.1 MG/DL (8.5-10.1); CARBON DIOXIDE 26 MMOL/L (21-32); CHLORIDE 106 MMOL/L (98-107); CREATININE 1.1 MG/DL (0.55-1.30); POTASSIUM 3.9 MMOL/L (3.5-5.1); SODIUM 141 MMOL/L (136-145)
[2017-03-23] MEDS: Vancomycin 750mg/NS 250ml IVPB SCH ×2 (08:39→20:56)
[2017-03-23] MEDS: PARoxetine 10mg tab ORAL SCH (08:40)
[2017-03-23] MEDS: guaiFENesin ER 600mg tab ORAL SCH ×2 (08:40→17:34)
[2017-03-23] MEDS: Metoprolol 25mg tab ORAL SCH ×3 (08:40→21:31)
[2017-03-23] MEDS: Multivitamin w/Minerals tab ORAL SCH (08:40)
[2017-03-23] MEDS: Docusate 100mg cap ORAL SCH ×3 (08:40→21:30)
[2017-03-23 12:00] VITALS: BP 139/60
--- NOTE | 2017-03-23 13:53 | Diagnostic Imaging Report ---
Indication: Dyspnea Comparison: 03/20/2018 A single view chest radiograph was obtained. Findings: Heart size and mediastinal contours are stable. There is no definite focal airspace consolidation. No pleural effusion or pneumothorax. No acute osseous abnormality seen. Impression: Cardiomegaly. No focal airspace consolidation.
[2017-03-23] MEDS ORDERED: Tubing IV Secondary IV ONE (15:57)
[2017-03-23] MEDS ORDERED: Sterile Water Irrig 1000ml IRRIG ONE (15:57)
[2017-03-23 16:00] VITALS: BP 142/85
--- NOTE | 2017-03-23 16:15 | Consultation ---
DATE OF CONSULTATION: 03/23/2017 CONSULTING PHYSICIAN: Fletcher Samuel M.D. REFERRING PHYSICIAN: Gogo Hubbard M.D. REASON FOR CONSULTATION: Evaluation of hematuria. HISTORY OF PRESENT ILLNESS: This is an 86-year-old male, he was admitted to the hospital because of altered mental status. He is a resident of [facility]. He was noted to have infiltrates and possible pneumonia. He has a Muñoz catheter that was placed at the time of admission. Hematuria was noted. Urology evaluation was requested. The patient was on anticoagulation, which had been held. Most of the history was obtained from the chart. PAST MEDICAL HISTORY: Significant for above. Again, history of Alzheimer's dementia, atrial fibrillation, hypertension, GERD, and BPH. PAST SURGICAL HISTORY: Unknown. CURRENT MEDICATIONS: In the hospital, the patient is on vancomycin, Zosyn, Colace, Flomax, Lopressor, Mucinex, sodium chloride, Tylenol, MiraLAX, Dulcolax, and Paxil. ALLERGIES: No known drug allergies. SOCIAL HISTORY: He currently lives in a [facility]. REVIEW OF SYSTEMS: Unable to obtain. FAMILY HISTORY: Unable to obtain. PHYSICAL EXAMINATION: GENERAL: An elderly male, no acute distress. VITAL SIGNS: Temperature is 97.2, blood pressure 140/91, pulse 88, and respirations 20. HEENT: Normocephalic. NECK: Supple. ABDOMEN: Soft. GENITOURINARY: Muñoz in place, 16-English. Urine is blood-tinged. EXTREMITIES: No clubbing or cyanosis. LABORATORY DATA: BUN is 15, creatinine 1.1, and potassium 3.9. White count is 5.9, hemoglobin 12.9, and platelets of 186,000. His UA showed 3+ protein and too numerous to count RBCs. There is no PT, PTT, . DIAGNOSTIC IMAGING STUDIES: The patient had a chest x-ray, which did not show acute disease. IMPRESSION: 1. Gross hematuria, possibly secondary to Muñoz trauma. 2. Benign prostatic hypertrophy. 3. Urinary retention. 4. Rule out neurogenic bladder. 5. Proteinuria. 6. 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 PLAN AND DISCUSSION: The patient does have hematuria possibly because of the Muñoz irritation and also anticoagulation. He was on aspirin and Xarelto, which had been held. I did personally hand irrigate the Muñoz catheter. There were minimal clots that I evacuated. At this time, I would recommend to again stay off anticoagulation. He is to continue with Flomax. We will also add finasteride 5 mg daily. His Muñoz catheter will be irrigated on a p.r.n. basis. He is to continue with antibiotics as ordered. We will consider renal imaging studies and possibly cystoscopy in the future. Thank you, Dr. Hubbard, for asking me to see this patient in consultation. Fletcher Samuel M.D. DR: FLORY JOB#: [id number] CC:
--- NOTE | 2017-03-23 18:51 | Internal Med Progress Note ---
Subjective Physician Name PhilipRhianna Attending Physician Carlos Lu Current Medications Medications (Trade) Dose Ordered Sig/Jeny Route PRN Reason Start Time Stop Time Status Last Admin Dose Admin Acetaminophen (Tylenol) 650 mg Q4H PRN ORAL Mild Pain (Pain Scale 1-3) 03/19/17 10:00 04/18/17 09:59 Acetaminophen (Tylenol) 650 mg Q4H PRN ORAL fever 03/19/17 10:00 04/18/17 09:59 Acetaminophen (Tylenol) 650 mg Q4H PRN RECTAL Mild Pain (Pain Scale 1-3) 03/19/17 09:00 04/18/17 08:59 Albuterol/ Ipratropium (Albuterol/ Ipratropium) 3 ml Q4H PRN HHN Shortness of Breath 03/19/17 14:00 03/24/17 13:59 Albuterol/ Ipratropium (Albuterol/ Ipratropium) 3 ml Q6HRT HHN 03/19/17 14:30 03/24/17 14:29 03/23/17 13:43 Bisacodyl (Dulcolax) 10 mg HSPRN PRN RECTAL Constipation 1st Line Agent 03/19/17 09:00 04/18/17 08:59 Dextrose (Dextrose 50%) STAT PRN IV Hypoglycemia 03/19/17 10:00 04/18/17 09:59 Docusate Sodium (Colace) 100 mg EVERY 12 HOURS ORAL 03/19/17 21:00 04/18/17 20:59 03/23/17 08:40 Finasteride (Proscar) 5 mg DAILY ORAL 03/23/17 10:00 04/22/17 09:59 03/23/17 10:56 Guaifenesin (Mucinex ER) 600 mg TWICE A DAY ORAL 03/19/17 18:00 04/18/17 17:59 03/23/17 17:34 Metoprolol Tartrate (Lopressor) 25 mg Q12HR ORAL 03/19/17 21:00 04/18/17 20:59 03/23/17 08:40 Multivitamins Therapeutic (Therapeutic Multivitamin) 1 ea DAILY ORAL 03/19/17 09:00 04/18/17 08:59 03/23/17 08:40 Ondansetron HCl (Zofran) 4 mg Q6H PRN IVP Nausea & Vomiting 03/19/17 10:00 04/18/17 09:59 Paroxetine HCl (Paxil) 5 mg DAILY ORAL 03/19/17 09:00 04/18/17 08:59 03/23/17 08:40 Piperacillin Sod/ Tazobactam Sod 3.375 gm/Sodium Chloride 110 ml @ 27.5 mls/hr EVERY 8 HOURS IVPB 03/21/17 06:00 03/28/17 05:59 03/23/17 14:30 Polyethylene Glycol (Miralax) 17 gm HSPRN PRN ORAL Constipation 2nd Line Agent 03/19/17 10:00 04/18/17 09:59 Sodium Chloride 1,000 ml @ 75 mls/hr [id number] IV 03/19/17 15:00 04/18/17 14:59 03/22/17 09:28 Tamsulosin HCl (Flomax) 0.4 mg BEDTIME ORAL 03/19/17 21:00 04/18/17 20:59 03/22/17 20:21 Vancomycin HCl (Vanco rx to dose) 1 ea DAILY PRN MISC Per rx protocol 03/19/17 09:00 04/18/17 08:59 Vancomycin/Sodium Chloride 250 ml @ 166.667 mls/hr Q12H IVPB 03/22/17 20:00 03/27/17 19:59 03/23/17 08:39 Allergies: Coded Allergies: No Known Allergies (Unverified , 03/19/17) Objective Last Vital Signs Date Time Temp Pulse Resp B/P (MAP) Pulse Ox O2 Delivery O2 Flow Rate FiO2 03/23/17 16:00 96.1 84 20 142/85 98 03/23/17 13:53 Room Air 03/23/17 13:43 21 03/19/17 16:00 4.0 Laboratory Tests Test 03/23/17 05:15 03/23/17 06:40 Urine Color Red Urine Appearance Cloudy Urine pH 6.5 (4.5-8.0) Urine Specific [place] 1.015 (1.005-1.035) Urine Protein 3+ (NEGATIVE) H Urine Glucose (UA) Negative (NEGATIVE) Urine Ketones Negative (NEGATIVE) Urine Occult Blood 5+ (NEGATIVE) H Urine Nitrite Negative (NEGATIVE) Urine Bilirubin Negative (NEGATIVE) Urine Urobilinogen 1 MG/DL (0.0-1.0) H Urine Leukocyte Esterase Negative (NEGATIVE) Urine RBC Tntc /HPF (0 - 0) H Urine WBC 2-4 /HPF (0 - 0) Urine Squamous Epithelial Cells Occasional /LPF Urine Bacteria Few /HPF (NONE) White Blood Count 5.1 K/UL (4.8-10.8) Red Blood Count 3.78 M/UL (4.70-6.10) L Hemoglobin 12.9 G/DL (14.2-18.0) L Hematocrit 37.1 % (42.0-52.0) L Mean Corpuscular Volume 98 FL (80-99) Mean Corpuscular Hemoglobin 34.1 PG (27.0-31.0) H Mean Corpuscular Hemoglobin Concent 34.8 G/DL (32.0-36.0) Red Cell Distribution Width 12.3 % (11.6-14.8) Platelet Count 186 K/UL (150-450) Mean Platelet Volume 7.7 FL (6.5-10.1) Neutrophils (%) (Auto) 57.7 % (45.0-75.0) Lymphocytes (%) (Auto) 29.8 % (20.0-45.0) Monocytes (%) (Auto) 10.1 % (1.0-10.0) H Eosinophils (%) (Auto) 1.2 % (0.0-3.0) Basophils (%) (Auto) 1.1 % (0.0-2.0) Sodium Level 141 MMOL/L (136-145) Potassium Level 3.9 MMOL/L (3.5-5.1) Chloride Level 106 MMOL/L (98-107) Carbon Dioxide Level 26 MMOL/L (21-32) Anion Gap 9 mmol/L (5-15) Blood Urea Nitrogen 15 mg/dL (7-18) Creatinine 1.1 MG/DL (0.55-1.30) Estimat Glomerular Filtration Rate mL/min (>60) Glucose Level 86 MG/DL (74-106) Calcium Level 9.1 MG/DL (8.5-10.1) Intake and Output 03/22/17 03/23/17 19:00 07:00 Intake Total 1150.000 ml Output Total 600 ml 1200 ml Balance 550.000 ml -1200 ml Intake Oral 500 ml IV Total 650.000 ml Output Urine Total 600 ml 1200 ml Assessment/Plan Assessment/Plan Problem List: (1) Sepsis ICD Codes: A41.9 - Sepsis, unspecified organism SNOMED: 67669621 (2) HCAP (healthcare-associated pneumonia) ICD Codes: J18.9 - Pneumonia, unspecified organism SNOMED: 773060640 (3) RODOLFO (acute kidney injury) ICD Codes: N17.9 - Acute kidney failure, unspecified SNOMED: 36785254 (4) Acute toxic metabolic encephalopathy (5) Elevated troponin Assessment & Plan: likely NSTEMI type 2 in setting of sepsis ICD Codes: R74.8 - Abnormal levels of other serum enzymes SNOMED: 568420350, 911102636, 224321808 (6) Chronic a-fib ICD Codes: I48.2 - Chronic atrial fibrillation SNOMED: 138710007 (7) GERD (gastroesophageal reflux disease) ICD Codes: K21.9 - Gastro-esophageal reflux disease without esophagitis SNOMED: 750579621 (8) HTN (hypertension) ICD Codes: I10 - Essential (primary) hypertension SNOMED: 39177973 (9) BPH (benign prostatic hyperplasia) ICD Codes: N40.0 - Benign prostatic hyperplasia without lower urinary tract symptoms SNOMED: 997031629 (10) Alzheimer's dementia ICD Codes: G30.9 - Alzheimer's disease, unspecified; F02.80 - Dementia in other diseases classified elsewhere without behavioral disturbance SNOMED: 71516562 Status: stable Assessment/Plan Pulm consulted ID consulted Empiric vanco and zosyn (03/19-) F/u cultures Duonebs ATC and PRN Guaifenesin NPO pending swallow eval IVFs given RODOLFO Hold ARB given RODOLFO Trend BMP Cardiology consult given elevated trop Trend trop/EKG Check TTE ASA 81mg daily Cont SNF meds Pain control, bowel regimen Supportive care DVT Prophylaxis: SCD, xarelto Code Status: Full Hospital Classification Declaration: Based on this initial evaluation, and depending on the patient's clinical course, I anticipate that this patient will require hospitalization for 2-3 days for sepsis, PNA, and close respiratory/ hemodynamic monitoring. Disposition: Once the patient is stable to leave the hospital, I anticipate the patient will likely be discharged to the following environment: back to SNF I spent 72 minutes on this patient's case, and 40 minutes were dedicated to counseling and/or care coordination. Discussed with patient/family, nursing staff, SW/CM, pulmonology, ID, cardiology regarding clinical status, treatment course, and disposition planning. Rhianna Palacios M.D. Mar 23, 2017 18:51
[2017-03-23 20:00] VITALS: BP 144/109
[2017-03-23] MEDS: Tamsulosin 0.4mg cap ORAL SCH ×2 (21:00→21:31)
[2017-03-24 00:38] VITALS: BP 169/115
[2017-03-24] MEDS: Albuterol/Ipratropium 3ml neb HHN SCH ×3 (01:00→13:26)
[2017-03-24 04:20] VITALS: BP 163/98
[2017-03-24] MEDS: Zoysn 3.37gm in NS 100ML IVPB SCH ×2 (05:29→15:10)
[2017-03-24 08:00] VITALS: BP 142/71
--- NOTE | 2017-03-24 10:06 | Cardiac Electrophysiology PN ---
Assessment/Plan Assessment/Plan 1. Troponin elevation. No chest pain or [place]. EF 55%. On Lopressor, and Lipitor. Aspirin DC ed for hematuria 2. Chronic atrial fibrillation. Xarelto DCed for hematuria. On Lopressor 25 mg twice a day. 3. Fever and sepsis. On Abx per ID 4. Hypertension. On Lopressor 25 bid. 5. Dementia. 6. Altered mental status likely due to sepsis. 7. Dysphagia: Swallow eval pending 8. Hematuria. Now off aspirin and Xarek lto. Follow up Dr Samuel. Is having bladder irrigation. ADRIANA RN Subjective Subjective Has been having hematuria. Evaluated by Dr Samuel. In atrial fib with controlled rate and occasional PVCs. Video swallow eval pending today Objective Last 24 Hour Vital Signs Date Time Temp Pulse Resp B/P (MAP) Pulse Ox O2 Delivery O2 Flow Rate FiO2 03/24/17 08:00 97.0 89 18 142/71 03/24/17 07:29 87 18 98 Nasal Cannula 2.0 28 03/24/17 07:19 86 20 93 Nasal Cannula 2.0 28 03/24/17 04:20 98.7 104 21 163/98 03/24/17 04:00 92 03/24/17 01:43 Room Air 21 03/24/17 01:42 Room Air 21 03/24/17 00:38 96.3 100 20 169/115 92 Room Air 03/24/17 00:00 85 03/23/17 20:00 97.3 89 21 144/109 96 03/23/17 20:00 80 03/23/17 19:31 78 20 97 Room Air 21 03/23/17 19:30 74 20 93 Room Air 21 03/23/17 16:00 83 03/23/17 16:00 96.1 84 20 142/85 98 03/23/17 13:53 73 20 100 Room Air 03/23/17 13:43 76 20 92 Room Air 21 03/23/17 12:00 80 03/23/17 12:00 96.4 79 20 139/60 94 Intake and Output 03/23/17 03/24/17 19:00 07:00 Intake Total 490.000 ml Output Total 200 ml 400 ml Balance 290.000 ml -400 ml Intake Oral 240 ml IV Total 250.000 ml Output Urine Total 200 ml 400 ml Laboratory Tests Test 03/24/17 07:30 Vancomycin Level Trough 17.9 ug/mL (5.0-12.0) H Microbiology Date/Time Source Procedure Growth Status 03/23/17 05:15 Urine,Clean Catch Urine Culture - Preliminary NO GROWTH Resulted Objective HEAD AND NECK: No JVD. LUNGS: Clear. CARDIOVASCULAR: Regular S1 and S2 with no gallop or murmur. ABDOMEN: Soft. EXTREMITIES: No pitting edema. DOROTHY ARMSTRONG Mar 24, 2017 10:06
[2017-03-24] MEDS: Vancomycin 750mg/NS 250ml IVPB SCH (10:12)
[2017-03-24] MEDS: PARoxetine 10mg tab ORAL SCH (10:13)
[2017-03-24] MEDS: Metoprolol 25mg tab ORAL SCH ×2 (10:13→20:46)
[2017-03-24] MEDS: guaiFENesin ER 600mg tab ORAL SCH ×2 (10:13→18:12)
[2017-03-24] MEDS: Multivitamin w/Minerals tab ORAL SCH (10:13)
[2017-03-24] MEDS: Docusate 100mg cap ORAL SCH ×2 (10:13→20:45)
--- NOTE | 2017-03-24 10:18 | Urology Progress Note ---
Assessment/Plan Assessment/Plan 1. Gross hematuria, possibly secondary to Aguirre trauma. 2. Benign prostatic hypertrophy. 3. Urinary retention. 4. Rule out neurogenic bladder. 5. Proteinuria. 6. 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 hand irrigate aguirre PRN cont flomax, proscar, abx off anticoagulation consider renal imaging cysto later voiding trial soon? Subjective Allergies: Coded Allergies: No Known Allergies (Unverified , 03/19/17) Subjective all noted, comfortable Objective Last 24 Hour Vital Signs Date Time Temp Pulse Resp B/P (MAP) Pulse Ox O2 Delivery O2 Flow Rate FiO2 03/24/17 10:13 89 142/71 03/24/17 08:00 97.0 89 18 142/71 03/24/17 07:29 87 18 98 Nasal Cannula 2.0 28 03/24/17 07:19 86 20 93 Nasal Cannula 2.0 28 03/24/17 04:20 98.7 104 21 163/98 03/24/17 04:00 92 03/24/17 01:43 Room Air 21 03/24/17 01:42 Room Air 21 03/24/17 00:38 96.3 100 20 169/115 92 Room Air 03/24/17 00:00 85 03/23/17 20:00 97.3 89 21 144/109 96 03/23/17 20:00 80 03/23/17 19:31 78 20 97 Room Air 21 03/23/17 19:30 74 20 93 Room Air 21 03/23/17 16:00 83 03/23/17 16:00 96.1 84 20 142/85 98 03/23/17 13:53 73 20 100 Room Air 03/23/17 13:43 76 20 92 Room Air 21 03/23/17 12:00 80 03/23/17 12:00 96.4 79 20 139/60 94 Intake and Output 03/23/17 03/24/17 19:00 07:00 Intake Total 490.000 ml Output Total 200 ml 400 ml Balance 290.000 ml -400 ml Intake Oral 240 ml IV Total 250.000 ml Output Urine Total 200 ml 400 ml Microbiology Date/Time Source Procedure Growth Status 03/19/17 06:40 Blood Blood Culture - Preliminary NO GROWTH AFTER 4 DAYS Resulted 03/19/17 06:55 Nasal Nares Influenza Types A,B Antigen ([facility]) - Final Complete 03/23/17 05:15 Urine,Clean Catch Urine Culture - Preliminary NO GROWTH Resulted 03/19/17 06:42 Rectum VRE Culture - Final NO VANCOMYCIN RESISTANT ENTEROCOCCUS ... Complete Current Medications Medications (Trade) Dose Ordered Sig/Jeny Route PRN Reason Start Time Stop Time Status Last Admin Dose Admin Acetaminophen (Tylenol) 650 mg Q4H PRN ORAL Mild Pain (Pain Scale 1-3) 03/19/17 10:00 04/18/17 09:59 Acetaminophen (Tylenol) 650 mg Q4H PRN ORAL fever 03/19/17 10:00 04/18/17 09:59 Acetaminophen (Tylenol) 650 mg Q4H PRN RECTAL Mild Pain (Pain Scale 1-3) 03/19/17 09:00 04/18/17 08:59 Albuterol/ Ipratropium (Albuterol/ Ipratropium) 3 ml Q4H PRN HHN Shortness of Breath 03/19/17 14:00 03/24/17 13:59 Albuterol/ Ipratropium (Albuterol/ Ipratropium) 3 ml Q6HRT HHN 03/19/17 14:30 03/24/17 14:29 03/24/17 07:19 Bisacodyl (Dulcolax) 10 mg HSPRN PRN RECTAL Constipation 1st Line Agent 03/19/17 09:00 04/18/17 08:59 Dextrose (Dextrose 50%) STAT PRN IV Hypoglycemia 03/19/17 10:00 04/18/17 09:59 Docusate Sodium (Colace) 100 mg EVERY 12 HOURS ORAL 03/19/17 21:00 04/18/17 20:59 03/24/17 10:13 Finasteride (Proscar) 5 mg DAILY ORAL 03/23/17 10:00 04/22/17 09:59 03/24/17 10:13 Guaifenesin (Mucinex ER) 600 mg TWICE A DAY ORAL 03/19/17 18:00 04/18/17 17:59 03/24/17 10:13 Metoprolol Tartrate (Lopressor) 25 mg Q12HR ORAL 03/19/17 21:00 04/18/17 20:59 03/24/17 10:13 Multivitamins Therapeutic (Therapeutic Multivitamin) 1 ea DAILY ORAL 03/19/17 09:00 04/18/17 08:59 03/24/17 10:13 Ondansetron HCl (Zofran) 4 mg Q6H PRN IVP Nausea & Vomiting 03/19/17 10:00 04/18/17 09:59 03/24/17 02:24 Paroxetine HCl (Paxil) 5 mg DAILY ORAL 03/19/17 09:00 04/18/17 08:59 03/24/17 10:13 Piperacillin Sod/ Tazobactam Sod 3.375 gm/Sodium Chloride 110 ml @ 27.5 mls/hr EVERY 8 HOURS IVPB 03/21/17 06:00 03/28/17 05:59 03/24/17 05:29 Polyethylene Glycol (Miralax) 17 gm HSPRN PRN ORAL Constipation 2nd Line Agent 03/19/17 10:00 04/18/17 09:59 Sodium Chloride 1,000 ml @ 75 mls/hr [id number] IV 03/19/17 15:00 04/18/17 14:59 03/24/17 00:58 Tamsulosin HCl (Flomax) 0.4 mg BEDTIME ORAL 03/19/17 21:00 04/18/17 20:59 03/22/17 20:21 Vancomycin HCl (Vanco rx to dose) 1 ea DAILY PRN MISC Per rx protocol 03/19/17 09:00 04/18/17 08:59 Vancomycin/Sodium Chloride 250 ml @ 166.667 mls/hr Q12H IVPB 03/22/17 20:00 03/27/17 19:59 03/24/17 10:12 Laboratory Tests 03/24/17 07:30: Vancomycin Level Trough 17.9H Height (Feet): 6 Weight (Pounds): 175 Objective exam stable, urine misty DOUGSHADCHANDRASUMMER Mar 24, 2017 10:18
[2017-03-24 12:00] VITALS: BP 133/70
[2017-03-24] MEDS ORDERED: AUGMENTIN 875-1 EAC1 ORAL (15:20)
[2017-03-24] MEDS ORDERED: DOXYCYCLINE MO100 M2 PO (15:20)
[2017-03-24] MEDS ORDERED: FINASTERIDE5 MG ORAL (15:55)
--- NOTE | 2017-03-24 15:55 | General Progress Note ---
Assessment/Plan Problem List: (1) Acute blood loss anemia ICD Codes: D62 - Acute posthemorrhagic anemia SNOMED: 241001223 (2) Gross hematuria ICD Codes: R31.0 - Gross hematuria SNOMED: 233036720 (3) Sepsis ICD Codes: A41.9 - Sepsis, unspecified organism SNOMED: 87152686 (4) HCAP (healthcare-associated pneumonia) ICD Codes: J18.9 - Pneumonia, unspecified organism SNOMED: 029556002 (5) RODOLFO (acute kidney injury) ICD Codes: N17.9 - Acute kidney failure, unspecified SNOMED: 83352992 (6) Acute toxic metabolic encephalopathy (7) Elevated troponin Assessment & Plan: likely NSTEMI type 2 in setting of sepsis ICD Codes: R74.8 - Abnormal levels of other serum enzymes SNOMED: 532535437, 815367544, 544576275 (8) Chronic a-fib ICD Codes: I48.2 - Chronic atrial fibrillation SNOMED: 182509360 (9) GERD (gastroesophageal reflux disease) ICD Codes: K21.9 - Gastro-esophageal reflux disease without esophagitis SNOMED: 307677252 (10) HTN (hypertension) ICD Codes: I10 - Essential (primary) hypertension SNOMED: 93605679 (11) BPH (benign prostatic hyperplasia) ICD Codes: N40.0 - Benign prostatic hyperplasia without lower urinary tract symptoms SNOMED: 514003657 (12) Alzheimer's dementia ICD Codes: G30.9 - Alzheimer's disease, unspecified; F02.80 - Dementia in other diseases classified elsewhere without behavioral disturbance SNOMED: 78327339 Status: stable Assessment/Plan Pulm consulted ID consulted Empiric vanco and zosyn (03/19-) --> change to augmentin + doxycline on d/c F/u cultures--ngtd Duonebs ATC and PRN Guaifenesin Puree necktar thick diet per DIRECTOR STERILE PROCESSING F/u video swallow study-OK for puree diet D/c IVFs Resume ARB on d/c Trend BMP Cardiology consult given elevated trop Trop now downtrending, peaked at 0.07 Check TTE--EF 55% Hold anticoagulation and ASA given hematuria Urology consulted s/p aguirre irrigation D/c aguirre in AM for voiding trial Cont SNF meds Pain control, bowel regimen Supportive care DVT Prophylaxis: SCD Code Status: Full Hospital Classification Declaration: Based on this initial evaluation, and depending on the patient's clinical course, I anticipate that this patient will require hospitalization for 1-2 days hematuria, and close respiratory/ hemodynamic monitoring. Disposition: Once the patient is stable to leave the hospital, I anticipate the patient will likely be discharged to the following environment: back to SNF Discussed with patient/family, nursing staff, SW/CM, pulmonology, ID, cardiology regarding clinical status, treatment course, and disposition planning. D/w ID re abx. D/w DIRECTOR STERILE PROCESSING re diet, video swallow study. D/w urology re hematuria Time of note may not reflect time of encounter. Subjective Date patient seen: Mar 24, 2017 Time patient seen: 15:55 ROS Limited/Unobtainable: Yes Allergies: Coded Allergies: No Known Allergies (Unverified , 03/19/17) Subjective No acute o/n events Had hematuria over the weekend, aguirre was irrigated and is now clearing. Anticoagulation held. Pt more awake, alert Cough, congestion, SOB improving ROS limited 2/2 dementia Objective Last 24 Hour Vital Signs Date Time Temp Pulse Resp B/P (MAP) Pulse Ox O2 Delivery O2 Flow Rate FiO2 03/24/17 13:34 75 20 98 Nasal Cannula 2.0 28 03/24/17 13:26 73 18 96 Nasal Cannula 2.0 28 03/24/17 12:52 75 03/24/17 12:00 97.8 84 19 133/70 99 03/24/17 10:13 89 142/71 03/24/17 08:00 97.0 89 18 142/71 03/24/17 08:00 90 03/24/17 07:29 87 18 98 Nasal Cannula 2.0 28 03/24/17 07:19 86 20 93 Nasal Cannula 2.0 28 03/24/17 04:20 98.7 104 21 163/98 03/24/17 04:00 92 03/24/17 01:43 Room Air 21 03/24/17 01:42 Room Air 21 03/24/17 00:38 96.3 100 20 169/115 92 Room Air 03/24/17 00:00 85 03/23/17 20:00 97.3 89 21 144/109 96 03/23/17 20:00 80 03/23/17 19:31 78 20 97 Room Air 21 03/23/17 19:30 74 20 93 Room Air 21 03/23/17 16:00 83 03/23/17 16:00 96.1 84 20 142/85 98 Intake and Output 03/23/17 03/24/17 19:00 07:00 Intake Total 490.000 ml Output Total 200 ml 400 ml Balance 290.000 ml -400 ml Intake Oral 240 ml IV Total 250.000 ml Output Urine Total 200 ml 400 ml Laboratory Tests 03/24/17 07:30: Vancomycin Level Trough 17.9H Height (Feet): 6 Weight (Pounds): 175 Objective General: alert, cooperative, no distress, appears stated age, A&Ox1 (baseline) Head: normocephalic, without obvious abnormality, atraumatic Eyes: conjunctivae/corneas clear. PERRL, EOM's intact Throat: lips, mucosa, and tongue normal. MMM Neck: supple, symmetrical, trachea midline, and no JVD Lungs: +rhonchi b/l Heart: regular rate and rhythm, S1, S2 normal, no murmur, click, rub or gallop Abdomen: soft, non-tender, non-distended, bowel sounds normal Extremities: extremities normal, atraumatic, no cyanosis or edema Pulses: 2+ and symmetric Skin: skin color, texture, turgor normal; no rashes or lesions Neurologic: grossly normal, no focal deficits Gogo Hubbard M.D. Mar 24, 2017 15:55
[2017-03-24 16:00] VITALS: BP 135/75
--- NOTE | 2017-03-24 17:46 | Infectious Diseases Prog Note ---
Assessment/Plan Assessment/Plan ASSESSMENT AND PLAN: 1. sepsis, uri/bronchitis, ? pna, ? viral syndrome, influenza negative, leukocytosis, fevers, sirs - vancomycin and zosyn iv - change to oral augmentin plus doxy x 5 days for 10 day course - check f/u chest x-ray - check labs and final cultures - clinically better, leukocytosis and fevers resolved - d/w Dr. Bowens - d/w daughter 2. Alzheimer's. 3. Dementia. 4. Atrial fibrillation. 5. Hypertension. 6. Gastroesophageal reflux disease. 7. Benign prostatic hyperplasia. 8. Anemia. 9. Altered mental status. 10. Encephalopathy. 11. Acute kidney injury. 12. Chronic atrial fibrillation. 13. Alzheimer's dementia and aspiration risk. 14. Past medical history noted. 15. No allergies. 16. Social history of negative. 17. Family history is noncontributory. 18. MAR was noted. 19. Case was discussed with RN. 20. Continue treatment per primary consultants. 21. Skin care protocol. 22. Notes and records were noted. 23. Orders were noted. 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 Subjective Constitutional: Denies: fever HEENT: Denies: congestion Respiratory: Denies: shortness of breath Cardiovascular: Denies: chest pain Gastrointestinal/Abdominal: Denies: nausea, vomiting, diarrhea Genitourinary: Reports: other - + aguirre Neurologic: Denies: confusion Psychiatric: Denies: depression Skin: Denies: rash Hematologic: Denies: bleeding Musculoskeletal: Denies: pain Allergies: Coded Allergies: No Known Allergies (Unverified , 03/19/17) Objective Vital Signs Last 24 Hour Vital Signs Date Time Temp Pulse Resp B/P (MAP) Pulse Ox O2 Delivery O2 Flow Rate FiO2 03/24/17 16:00 81 03/24/17 13:34 75 20 98 Nasal Cannula 2.0 28 03/24/17 13:26 73 18 96 Nasal Cannula 2.0 28 03/24/17 12:52 75 03/24/17 12:00 97.8 84 19 133/70 99 03/24/17 10:13 89 142/71 03/24/17 08:00 97.0 89 18 142/71 03/24/17 08:00 90 03/24/17 07:29 87 18 98 Nasal Cannula 2.0 28 03/24/17 07:19 86 20 93 Nasal Cannula 2.0 28 03/24/17 04:20 98.7 104 21 163/98 03/24/17 04:00 92 03/24/17 01:43 Room Air 21 03/24/17 01:42 Room Air 21 03/24/17 00:38 96.3 100 20 169/115 92 Room Air 03/24/17 00:00 85 03/23/17 20:00 97.3 89 21 144/109 96 03/23/17 20:00 80 03/23/17 19:31 78 20 97 Room Air 21 03/23/17 19:30 74 20 93 Room Air 21 Height (Feet): 6 Weight (Pounds): 175 General Appearance: no acute distress HEENT: normocephalic, atraumatic, anicteric, mucous membranes moist Respiratory/Chest: lungs clear, normal breath sounds, no respiratory distress, no accessory muscle use Cardiovascular: normal rate, regular rhythm, no gallop/murmur, no JVD Abdomen: normal bowel sounds, soft, non tender, no organomegaly, non distended Genitourinary: other - + aguirre - urine dark Extremities: no cyanosis Skin: no rash Neurologic/Psychiatric: silk printer II-XII grossly normal, alert, responsive Lymphatic: no neck adenopathy Musculoskeletal: no effusion Objective 03/20 - chest x-ray - Findings: No definite infiltrate or pulmonary vascular congestion identified. The heart is enlarged. The aorta is mildly enlarged consistent with atherosclerotic vascular disease. The bones are osteopenic. Impression: No acute disease 03/23 - chest x-ray negative Microbiology Date/Time Source Procedure Growth Status 03/19/17 06:40 Blood Blood Culture - Preliminary NO GROWTH AFTER 4 DAYS Resulted 03/19/17 06:55 Nasal Nares Influenza Types A,B Antigen ([facility]) - Final Complete 03/23/17 05:15 Urine,Clean Catch Urine Culture - Preliminary NO GROWTH Resulted 03/19/17 06:42 Rectum VRE Culture - Final NO VANCOMYCIN RESISTANT ENTEROCOCCUS ... Complete Microbiology Date/Time Source Procedure Growth Status 03/23/17 05:15 Urine,Clean Catch Urine Culture - Preliminary NO GROWTH Resulted Labs Test 03/22/17 07:10 03/23/17 05:15 03/23/17 06:40 03/24/17 07:30 White Blood Count 5.4 K/UL (4.8-10.8) 5.1 K/UL (4.8-10.8) Red Blood Count 3.76 M/UL (4.70-6.10) 3.78 M/UL (4.70-6.10) Hemoglobin 12.5 G/DL (14.2-18.0) 12.9 G/DL (14.2-18.0) Hematocrit 36.8 % (42.0-52.0) 37.1 % (42.0-52.0) Mean Corpuscular Volume 98 FL (80-99) 98 FL (80-99) Mean Corpuscular Hemoglobin 33.3 PG (27.0-31.0) 34.1 PG (27.0-31.0) Mean Corpuscular Hemoglobin Concent 34.0 G/DL (32.0-36.0) 34.8 G/DL (32.0-36.0) Red Cell Distribution Width 12.5 % (11.6-14.8) 12.3 % (11.6-14.8) Platelet Count 209 K/UL (150-450) 186 K/UL (150-450) Mean Platelet Volume 7.4 FL (6.5-10.1) 7.7 FL (6.5-10.1) Neutrophils (%) (Auto) 62.3 % (45.0-75.0) 57.7 % (45.0-75.0) Lymphocytes (%) (Auto) 25.7 % (20.0-45.0) 29.8 % (20.0-45.0) Monocytes (%) (Auto) 10.2 % (1.0-10.0) 10.1 % (1.0-10.0) Eosinophils (%) (Auto) 0.5 % (0.0-3.0) 1.2 % (0.0-3.0) Basophils (%) (Auto) 1.3 % (0.0-2.0) 1.1 % (0.0-2.0) Sodium Level 140 MMOL/L (136-145) 141 MMOL/L (136-145) Potassium Level 4.3 MMOL/L (3.5-5.1) 3.9 MMOL/L (3.5-5.1) Chloride Level 106 MMOL/L (98-107) 106 MMOL/L (98-107) Carbon Dioxide Level 26 MMOL/L (21-32) 26 MMOL/L (21-32) Anion Gap 8 mmol/L (5-15) 9 mmol/L (5-15) Blood Urea Nitrogen 18 mg/dL (7-18) 15 mg/dL (7-18) Creatinine 1.1 MG/DL (0.55-1.30) 1.1 MG/DL (0.55-1.30) Estimat Glomerular Filtration Rate mL/min (>60) mL/min (>60) Glucose Level 87 MG/DL (74-106) 86 MG/DL (74-106) Calcium Level 9.0 MG/DL (8.5-10.1) 9.1 MG/DL (8.5-10.1) Vancomycin Level Trough 7.1 ug/mL (5.0-12.0) 17.9 ug/mL (5.0-12.0) Urine Color Red Urine Appearance Cloudy Urine pH 6.5 (4.5-8.0) Urine Specific [place] 1.015 (1.005-1.035) Urine Protein 3+ (NEGATIVE) Urine Glucose (UA) Negative (NEGATIVE) Urine Ketones Negative (NEGATIVE) Urine Occult Blood 5+ (NEGATIVE) Urine Nitrite Negative (NEGATIVE) Urine Bilirubin Negative (NEGATIVE) Urine Urobilinogen 1 MG/DL (0.0-1.0) Urine Leukocyte Esterase Negative (NEGATIVE) Urine RBC Tntc /HPF (0 - 0) Urine WBC 2-4 /HPF (0 - 0) Urine Squamous Epithelial Cells Occasional /LPF Urine Bacteria Few /HPF (NONE) Laboratory Tests Test 03/24/17 07:30 Vancomycin Level Trough 17.9 ug/mL (5.0-12.0) H Current Medications Medications (Trade) Dose Ordered Sig/Jeny Route PRN Reason Start Time Stop Time Status Last Admin Dose Admin Acetaminophen (Tylenol) 650 mg Q4H PRN ORAL Mild Pain (Pain Scale 1-3) 03/19/17 10:00 2 09:59 Acetaminophen (Tylenol) 650 mg Q4H PRN ORAL fever 03/19/17 10:00 04/18/17 09:59 Acetaminophen (Tylenol) 650 mg Q4H PRN RECTAL Mild Pain (Pain Scale 1-3) 03/19/17 09:00 04/18/17 08:59 Bisacodyl (Dulcolax) 10 mg HSPRN PRN RECTAL Constipation 1st Line Agent 03/19/17 09:00 04/18/17 08:59 Dextrose (Dextrose 50%) STAT PRN IV Hypoglycemia 03/19/17 10:00 04/18/17 09:59 Docusate Sodium (Colace) 100 mg EVERY 12 HOURS ORAL 03/19/17 21:00 04/18/17 20:59 03/24/17 10:13 Finasteride (Proscar) 5 mg DAILY ORAL 03/23/17 10:00 04/22/17 09:59 03/24/17 10:13 Guaifenesin (Mucinex ER) 600 mg TWICE A DAY ORAL 03/19/17 18:00 04/18/17 17:59 03/24/17 10:13 Metoprolol Tartrate (Lopressor) 25 mg Q12HR ORAL 03/19/17 21:00 04/18/17 20:59 03/24/17 10:13 Multivitamins Therapeutic (Therapeutic Multivitamin) 1 ea DAILY ORAL 03/19/17 09:00 04/18/17 08:59 03/24/17 10:13 Ondansetron HCl (Zofran) 4 mg Q6H PRN IVP Nausea & Vomiting 03/19/17 10:00 04/18/17 09:59 03/24/17 02:24 Paroxetine HCl (Paxil) 5 mg DAILY ORAL 03/19/17 09:00 04/18/17 08:59 03/24/17 10:13 Piperacillin Sod/ Tazobactam Sod 3.375 gm/Sodium Chloride 110 ml @ 27.5 mls/hr EVERY 8 HOURS IVPB 03/21/17 06:00 03/28/17 05:59 03/24/17 15:10 Polyethylene Glycol (Miralax) 17 gm HSPRN PRN ORAL Constipation 2nd Line Agent 03/19/17 10:00 04/18/17 09:59 Tamsulosin HCl (Flomax) 0.4 mg BEDTIME ORAL 03/19/17 21:00 04/18/17 20:59 03/22/17 20:21 Vancomycin HCl (Vanco rx to dose) 1 ea DAILY PRN MISC Per rx protocol 03/19/17 09:00 04/18/17 08:59 Vancomycin/Sodium Chloride 250 ml @ 166.667 mls/hr Q12H IVPB 03/22/17 20:00 03/27/17 19:59 03/24/17 10:12 LILLIE LOMELI Mar 24, 2017 17:46
[2017-03-24] MEDS: Tamsulosin 0.4mg cap ORAL SCH (20:45)
[2017-03-24 20:55] VITALS: BP 126/71
[2017-03-24] MEDS: Augmentin 875mg Tab ORAL SCH (21:00)
[2017-03-25 00:25] VITALS: BP 138/69
[2017-03-25 04:26] VITALS: BP 142/72
[2017-03-25 08:00] VITALS: BP 143/92
[2017-03-25 08:48] LABS: ANION GAP 9 mmol/L (5-15); BLOOD UREA NITROGEN 16 mg/dL (7-18); CALCIUM 8.6 MG/DL (8.5-10.1); CARBON DIOXIDE 24 MMOL/L (21-32); CHLORIDE 107 MMOL/L (98-107); CREATININE 0.9 MG/DL (0.55-1.30); POTASSIUM 3.6 MMOL/L (3.5-5.1); SODIUM 140 MMOL/L (136-145)
[2017-03-25 09:09] LABS: BASOPHILS % (AUTO) 0.5 % (0.0-2.0); EOSINOPHILS % (AUTO) 2.8 % (0.0-3.0); HEMATOCRIT 37.9 % (42.0-52.0); HEMOGLOBIN 12.8 G/DL (14.2-18.0); LYMPHOCYTES % (AUTO) 16.4 % (20.0-45.0); MEAN CORPUSCULAR VOLUME 97 FL (80-99); MONOCYTES % (AUTO) 7.8 % (1.0-10.0); NEUTROPHILS % (AUTO) 72.5 % (45.0-75.0); PLATELET COUNT 238 K/UL (150-450); RED BLOOD COUNT 3.89 M/UL (4.70-6.10); RED CELL DISTRIBUTION WIDTH 12.4 % (11.6-14.8); WHITE BLOOD COUNT 9.4 K/UL (4.8-10.8)
[2017-03-25] MEDS: Docusate 100mg cap ORAL SCH (09:12)
[2017-03-25] MEDS: Multivitamin w/Minerals tab ORAL SCH (09:12)
[2017-03-25] MEDS: PARoxetine 10mg tab ORAL SCH (09:13)
[2017-03-25] MEDS: Augmentin 875mg Tab ORAL SCH (09:13)
[2017-03-25] MEDS: guaiFENesin ER 600mg tab ORAL SCH (09:14)
[2017-03-25] MEDS: Metoprolol 25mg tab ORAL SCH (09:14)
--- NOTE | 2017-03-25 09:51 | Urology Progress Note ---
Assessment/Plan Assessment/Plan 1. Gross hematuria, possibly secondary to Aguirre trauma. 2. Benign prostatic hypertrophy. 3. Urinary retention. 4. Rule out neurogenic bladder. 5. Proteinuria. 6. 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 cont flomax, proscar, abx off anticoagulation consider renal imaging cysto later voiding trial soon today reinsert aguirre PRN d/w Dr. Hubbard Subjective Allergies: Coded Allergies: No Known Allergies (Unverified , 03/19/17) Subjective all noted, comfortable Objective Last 24 Hour Vital Signs Date Time Temp Pulse Resp B/P (MAP) Pulse Ox O2 Delivery O2 Flow Rate FiO2 03/25/17 09:14 97 143/92 03/25/17 08:00 97.9 97 20 143/92 94 Room Air 03/25/17 04:26 98.2 90 18 142/72 98 Room Air 03/25/17 04:00 76 03/25/17 00:25 97.2 74 18 138/69 96 Room Air 03/25/17 00:00 83 03/24/17 20:55 97.7 83 19 126/71 94 03/24/17 20:46 90 140/77 03/24/17 20:00 74 03/24/17 16:00 81 03/24/17 16:00 96.9 81 18 135/75 100 03/24/17 13:34 75 20 98 Nasal Cannula 2.0 28 03/24/17 13:26 73 18 96 Nasal Cannula 2.0 28 03/24/17 12:52 75 03/24/17 12:00 97.8 84 19 133/70 99 03/24/17 10:13 89 142/71 Intake and Output 03/24/17 03/25/17 19:00 07:00 Intake Total 722.000 ml 236 ml Output Total 500 ml 1100 ml Balance 222.000 ml -864 ml Intake Oral 472 ml 236 ml IV Total 250.000 ml Output Urine Total 500 ml 1100 ml Microbiology Date/Time Source Procedure Growth Status 03/19/17 06:40 Blood Blood Culture - Final NO GROWTH AFTER 5 DAYS Complete 03/19/17 06:55 Nasal Nares Influenza Types A,B Antigen ([facility]) - Final Complete 03/23/17 05:15 Urine,Clean Catch Urine Culture - Preliminary NO GROWTH AFTER 24 HOURS Resulted 1/10/18 06:42 Rectum VRE Culture - Final NO VANCOMYCIN RESISTANT ENTEROCOCCUS ... Complete Current Medications Medications (Trade) Dose Ordered Sig/Jeny Route PRN Reason Start Time Stop Time Status Last Admin Dose Admin Acetaminophen (Tylenol) 650 mg Q4H PRN ORAL Mild Pain (Pain Scale 1-3) 03/19/17 10:00 04/18/17 09:59 Acetaminophen (Tylenol) 650 mg Q4H PRN ORAL fever 03/19/17 10:00 04/18/17 09:59 Acetaminophen (Tylenol) 650 mg Q4H PRN RECTAL Mild Pain (Pain Scale 1-3) 03/19/17 09:00 04/18/17 08:59 Amoxicillin/ Clavulanate Potassium (Augmentin) 875 mg EVERY 12 HOURS ORAL 03/24/17 21:00 03/31/17 20:59 03/25/17 09:13 Bisacodyl (Dulcolax) 10 mg HSPRN PRN RECTAL Constipation 1st Line Agent 03/19/17 09:00 04/18/17 08:59 Dextrose (Dextrose 50%) STAT PRN IV Hypoglycemia 03/19/17 10:00 04/18/17 09:59 Docusate Sodium (Colace) 100 mg EVERY 12 HOURS ORAL 03/19/17 21:00 04/18/17 20:59 03/25/17 09:12 Doxycycline Monohydrate (Vibramycin) 100 mg EVERY 12 HOURS ORAL 03/24/17 21:00 03/31/17 20:59 03/25/17 09:13 Finasteride (Proscar) 5 mg DAILY ORAL 03/23/17 10:00 04/22/17 09:59 03/25/17 09:12 Guaifenesin (Mucinex ER) 600 mg TWICE A DAY ORAL 03/19/17 18:00 04/18/17 17:59 03/25/17 09:14 Metoprolol Tartrate (Lopressor) 25 mg Q12HR ORAL 03/19/17 21:00 04/18/17 20:59 03/25/17 09:14 Multivitamins Therapeutic (Therapeutic Multivitamin) 1 ea DAILY ORAL 03/19/17 09:00 04/18/17 08:59 03/25/17 09:12 Ondansetron HCl (Zofran) 4 mg Q6H PRN IVP Nausea & Vomiting 03/19/17 10:00 04/18/17 09:59 03/24/17 02:24 Paroxetine HCl (Paxil) 5 mg DAILY ORAL 03/19/17 09:00 04/18/17 08:59 03/25/17 09:13 Polyethylene Glycol (Miralax) 17 gm HSPRN PRN ORAL Constipation 2nd Line Agent 03/19/17 10:00 04/18/17 09:59 Tamsulosin HCl (Flomax) 0.4 mg BEDTIME ORAL 03/19/17 21:00 04/18/17 20:59 03/24/17 20:45 Laboratory Tests 03/25/17 08:10: White Blood Count 9.4, Red Blood Count 3.89L, Hemoglobin 12.8L, Hematocrit 37.9L , Mean Corpuscular Volume 97, Mean Corpuscular Hemoglobin 33.0H, Mean Corpuscular Hemoglobin Concent 33.9, Red Cell Distribution Width 12.4, Platelet Count 238, Mean Platelet Volume 7.6, Neutrophils (%) (Auto) 72.5, Lymphocytes (% ) (Auto) 16.4L, Monocytes (%) (Auto) 7.8, Eosinophils (%) (Auto) 2.8, Basophils (%) (Auto) 0.5, Sodium Level 140, Potassium Level 3.6, Chloride Level 107, Carbon Dioxide Level 24, Anion Gap 9, Blood Urea Nitrogen 16, Creatinine 0.9, Estimat Glomerular Filtration Rate , Glucose Level 87, Calcium Level 8.6 Height (Feet): 6 Weight (Pounds): 175 Objective exam stable, urine misty DOUGSHADSUMMER Mar 25, 2017 09:51
[2017-03-25 12:00] VITALS: BP 146/80
--- NOTE | 2017-03-25 12:14 | Discharge Instructions ---
Discharge Instructions Discharge Instructions Follow up with: PCP Resume Normal Activity?: Yes Special Instructions Hold Xarelto for now and resume in a few days if no longer with hematuria ( blood in urine) For Congestive Heart Failure Reminder Report to your physician any weight gain of 5 pounds or more in one week. Gogo Hubbard M.D. Mar 25, 2017 12:14
--- NOTE | 2017-03-25 12:15 | Discharge Summary ---
Discharge Summary Hospital Course Date of Admission Mar 19, 2017 at 07:14 Date of Discharge 03/25/17 Admitting Diagnosis SEPSIS,PNEUMONIA Reason for Hospitalization: sepsis, pneumonia HPI 86y/o male with pmh of Alzheimer's dementia, Afib (on AC), HTN, GERD, BPH who presents from SNF with cough, SOB, fevers and AMS. Pt noted to have slightly decreased responsiveness than usual per report. He also had fever at SNF. He has been having a productive cough. Also w/ SOB, congestion. Per daughter, pt w / Alzheimer's dementia and is only usually A&Ox1. No reports of chest pain, n/v/ d, abd pain. In ED, pt w/ low-grade fever, leukocytosis and CXR w/ concern for RLL infiltrate. Pt was given vanco and zosyn. Consultations Urology, Infectious disease, Pulmonology, Cardiology Hospital Course Pt was admitted and continued on broad-spectrum antibiotics for sepsis likely 2/ 2 pneumonia. Pt underwent swallow eval including video swallow which showed some concern for aspiration, so pt's diet was downgraded to puree diet. Pt also with elevated troponin and was seen by cardiology. TTE showed normal EF. Elevated trop likely 2/2 demand ischemia. Pt's symptoms improved. He was transitioned to augmentin + doxycycline to complete antibiotic course per ID. Pt also noted to have gross hematuria and was seen by urology who performed aguirre irrigation. Pt's anticoagulation was held. Bleeding improved prior to d/ c. Aguirre was removed prior to d/c and pt was noted to be voiding on own. Urology recommended holding anticoagulation for a few more days and resuming at SNF if no further bleeding. Discharge physical exam: General: alert, cooperative, no distress, appears stated age, confused Head: normocephalic, without obvious abnormality, atraumatic Eyes: conjunctivae/corneas clear. PERRL, EOM's intact Throat: lips, mucosa, and tongue normal. MMM Neck: supple, symmetrical, trachea midline, and no JVD Lungs: clear to auscultation bilaterally Heart: regular rate and rhythm, S1, S2 normal, no murmur, click, rub or gallop Abdomen: soft, non-tender, non-distended, bowel sounds normal Extremities: extremities normal, atraumatic, no cyanosis or edema Pulses: 2+ and symmetric Skin: skin color, texture, turgor normal; no rashes or lesions Neurologic: grossly normal, no focal deficits Discharge diagnoses: (1) Acute blood loss anemia ICD Codes: D62 - Acute posthemorrhagic anemia SNOMED: 725080035 (2) Gross hematuria ICD Codes: R31.0 - Gross hematuria SNOMED: 663818507 (3) Sepsis ICD Codes: A41.9 - Sepsis, unspecified organism SNOMED: 59661287 (4) HCAP (healthcare-associated pneumonia) ICD Codes: J18.9 - Pneumonia, unspecified organism SNOMED: 073034573 (5) RODOLFO (acute kidney injury) ICD Codes: N17.9 - Acute kidney failure, unspecified SNOMED: 68291425 (6) Acute toxic metabolic encephalopathy (7) Elevated troponin, likely NSTEMI type 2 ICD Codes: R74.8 - Abnormal levels of other serum enzymes SNOMED: 476387044, 886907769, 207250232 (8) Chronic a-fib ICD Codes: I48.2 - Chronic atrial fibrillation SNOMED: 355197985 (9) GERD (gastroesophageal reflux disease) ICD Codes: K21.9 - Gastro-esophageal reflux disease without esophagitis SNOMED: 848839870 (10) HTN (hypertension) ICD Codes: I10 - Essential (primary) hypertension SNOMED: 08473435 (11) BPH (benign prostatic hyperplasia) ICD Codes: N40.0 - Benign prostatic hyperplasia without lower urinary tract symptoms SNOMED: 758322885 (12) Alzheimer's dementia ICD Codes: G30.9 - Alzheimer's disease, unspecified; F02.80 - Dementia in other diseases classified elsewhere without behavioral disturbance Discharge Medications New Medications: Amoxicillin/Potassium Clav 875-125* (Augmentin 875-125 Tablet*) 1 Each Tablet 1 TAB ORAL TWICE A DAY for 5 Days, #10 TAB Doxycycline Monohydrate (Doxycycline Monohydrate) 100 Mg Tablet 100 MG PO BID for 5 Days, #10 TAB Finasteride (Finasteride) 5 Mg Tablet 5 MG ORAL DAILY for 30 Days, #30 TAB 3 Refills Continued Medications: Amlodipine Besylate (Norvasc) 5 Mg Tablet 5 MG ORAL DAILY, TAB Bisacodyl (Bisacodyl) 10 Mg Supp.rect 5 MG RC DAILY, SUPP Captopril (Captopril) 50 Mg Tablet 50 MG PO DAILY, TAB Clonazepam* (Klonopin*) 0.5 Mg Tablet 0.5 MG ORAL BID, TAB 0 Refills Dexlansoprazole (Dexilant) 60 Mg Cap.drDionebp 60 MG ORAL DAILY, CAP Diclofenac Sodium (Voltaren) 100 Gm Gel..gram. 100 GM TP QID, GM Docusate Sodium* (Docusate Sodium*) 250 Mg Capsule 250 MG ORAL TWICE A DAY, CAP Multivitamin With Minerals (Multivitamins With Minerals*) 1 Each Tablet 1 TAB ORAL DAILY, TAB Olopatadine Hcl (Pataday) 2.5 Ml Drops 1 DROP BOTH EYES BID, ML Paroxetine Hcl* (Paxil*) 10 Mg Tablet 5 MG ORAL DAILY, TAB 0 Refills Tamsulosin Hcl (Tamsulosin Hcl*) 0.4 Mg Cap.er.24h 0.4 MG ORAL BEDTIME, CAP Valsartan (Diovan) 160 Mg Tablet 160 MG ORAL DAILY, TAB [Hpn] () 4 OZ PO THREE TIMES A DAY Discontinued Medications: Rivaroxaban (Xarelto) 15 Mg Tablet 15 MG ORAL DAILY, MG 0 Refills Discharge Condition Upon Discharge: stable Discharge Disposition Patient was discharged to SNF/Subacute Facility(03) Discharge Diagnoses: Discharge Instructions Discharge Instructions Follow up with: PCP Gogo Hubbard M.D. Mar 25, 2017 12:15
[2017-03-25] MEDS ORDERED: Sterile Water Irrig 1000ml IRRIG ONE (13:59)
--- NOTE | 2017-04-02 16:27 | Diagnostic Imaging Report ---
Indications: Dysphagia Technique: Patient ingested multiple substances under the supervision of speech pathology. Video fluoroscopic recording performed. Total fluoroscopy time 311 seconds. Total dose area product 0.94315 mGycm2 Comparison: none Findings: Slow initiation of deglutition. Early pooling of contrast in the vallecula and piriform sinuses. No evidence of aspiration or penetration. Impression: Negative for evidence of aspiration or penetration Other oromotor dysfunction as described Please refer to speech pathology report for more detailed analysis
== END 2017-03-25 14:00 | DRG 871 ==
LOC: EDBD 06:30 → EMR 06:57 → EDBEDREQ 07:09 → 2E 07:14 → EDBEDREQ 12:22 → 2E 03-20 23:15
DX: A41.9 Sepsis, unspecified organism (principal); J18.9 Pneumonia, unspecified organism; N17.9 Acute kidney failure, unspecified; G93.40 Encephalopathy, unspecified; G92 Toxic encephalopathy; I48.2 Chronic atrial fibrillation; G30.9 Alzheimer's disease, unspecified; D64.9 Anemia, unspecified; F02.80 Dementia in other diseases classified elsewhere, unspecified severity, without behavioral disturbance, psychotic disturbance, mood disturbance, and anxiety; R31.9 Hematuria, unspecified; R31.0 Gross hematuria; N41.1 Chronic prostatitis; R33.9 Retention of urine, unspecified; K21.9 Gastro-esophageal reflux disease without esophagitis
CPT/HCPCS: 36415; 36600; 71045; 74230; 80048; 80053; 80061; 80202; 81001; 81003; 82550; 82553; 82803; 83605; 83735; 83880; 84484; 85007; 85025; 86710; 87040; 87081; 87086; 93005; 93306; 94640; 99285; J2405; J7620